=== PATIENT | male | born 1940 | race Hispanic/Latino ===

== ENCOUNTER 2017-09-11 05:14 | Emergency (ER) | payer MEDICARE ==
--- NOTE | 2017-09-11 05:57 | ED PDOC ---
Arrival/HPI - General Chief Complaint: GI Problem Time Seen by Provider: 09/11/17 05:40 Historian: Patient, [facility] - History of Present Illness Narrative History of Present Illness (Text): 09/11/17 05:54 Federico Ortiz is a 77 year old male, whose past medical history includes hypertension, GERD, osteoarthritis, bipolar disorder, and depression, who presents to the Emergency department [facility] complaining of RUQ pain since yesterday. Patient reports associated nausea and multiple episodes of vomiting. Patient denies any fever, chills, chest pain, shortness of breath, diarrhea, urinary symptoms, headache, dizziness, or any other complaints. PMD: Dr. 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 ([facility]) Past Medical History - Provider Review Nursing Documentation Reviewed: Yes - Infectious Disease Hx of Infectious Diseases: None - Cardiac Hx Cardiac Disorders: Yes Hx Congestive Heart Failure: Yes Hx Hypertension: Yes - Pulmonary Hx Respiratory Disorders: No - Neurological Hx Neurological Disorder: No Hx Parkinson's Disease: Yes (? new dx) - HEENT Hx HEENT Disorder: No - Renal Hx Renal Disorder: No - Endocrine/Metabolic Hx Endocrine Disorders: No - Hematological/Oncological Hx Blood Disorders: Yes Hx Blood Transfusions: Yes - Integumentary Hx Dermatological Disorder: Yes Hx Cellulitis: Yes - Musculoskeletal/Rheumatological Hx Musculoskeletal Disorders: Yes Hx Arthritis: Yes - Gastrointestinal Hx Gastrointestinal Disorders: Yes Hx Gastroesophageal Reflux: Yes Hx Vomiting: Yes - Genitourinary/Gynecological Hx Genitourinary Disorders: No Other/Comment: BPH? - Psychiatric Hx Bipolar Disorder: Yes (???) Hx Depression: Yes Hx Schizophrenia: Yes Hx Substance Use: No - Surgical History Hx Open Reduction Internal Fixation: Yes (hip from hip fx 2ndry fall) Other/Comment: LEFT LEG SX - Anesthesia Hx Anesthesia: Yes Hx Anesthesia Reactions: No Hx Malignant Hyperthermia: No - Suicidal Assessment Feels Threatened In Home Enviroment: No Family/Social History - Physician Review Nursing Documentation Reviewed: Yes Family/Social History: Unknown Family HX Smoking Status: Never Smoked Hx Alcohol Use: Yes Hx Substance Use: No Allergies/Home Meds Allergies/Adverse Reactions: Allergies No Known Allergies Allergy (Verified 09/11/17 05:24) Home Medications: Home Meds Medication Instructions Recorded Confirmed Ascorbic Acid [Vitamin C] 500 mg PO DAILY 12/04/13 09/11/17 Escitalopram [Lexapro] 20 mg PO DAILY 12/04/13 09/11/17 Finasteride [Proscar] 5 mg PO DAILY 12/04/13 09/11/17 Furosemide [Lasix] 40 mg PO DAILY 12/04/13 09/11/17 Loratadine [Claritin] 10 mg PO DAILY 12/04/13 09/11/17 Potassium Chloride 20 meq PO DAILY 12/04/13 09/11/17 Tamsulosin [Flomax] 0.4 mg PO DAILY 12/04/13 09/11/17 Ziprasidone Hydrochloride [Geodon] 40 mg PO DAILY 12/04/13 09/11/17 Albuterol/Ipratropium [Duoneb 3 3 ml NEB Q6 PRN 09/11/17 09/11/17 mg/0.5 mg (3 ml) UD] Famotidine [Pepcid] 20 mg PO BID 09/11/17 09/11/17 Furosemide [Lasix] 40 mg PO DAILY 09/11/17 09/11/17 Loratadine [Claritin] 10 mg PO DAILY 09/11/17 09/11/17 Magnesium [Sunmark Magnesium] 250 mg PO HS 09/11/17 09/11/17 Memantine HCl [Namenda Xr] 1 each PO DAILY 09/11/17 09/11/17 Promethazine HCl [Promethegan] 25 mg RC Q8 PRN 09/11/17 09/11/17 Valsartan [Diovan] 80 mg PO DAILY 09/11/17 09/11/17 Review of Systems - Physician Review All systems were reviewed & negative as marked: Yes - Review of Systems Constitutional: Normal. absent: Fevers Eyes: Normal ENT: Normal Respiratory: Normal. absent: SOB, Cough Cardiovascular: Normal. absent: Chest Pain Gastrointestinal: Abdominal Pain, Nausea, Vomiting. absent: Diarrhea Genitourinary Male: Normal. absent: Dysuria, Frequency, Hematuria, Urinary Output Changes Musculoskeletal: Normal. absent: Back Pain, Neck Pain Skin: Normal. absent: Rash Neurological: Normal. absent: Headache, Dizziness Endocrine: Normal Hemo/Lymphatic: Normal Psychiatric: Normal Physical Exam Vital Signs Reviewed: Yes Vital Signs Temp Pulse Resp BP Pulse Ox 09/11/17 05:28 98.0 F 72 16 103/45 L 94 L Temperature: Afebrile Blood Pressure: Normal Pulse: Regular Respiratory Rate: Normal Appearance: Positive for: Well-Appearing, Non-Toxic, Comfortable Pain Distress: None Mental Status: Positive for: Alert and Oriented X 3 - Systems Exam Head: Present: Atraumatic, Normocephalic Pupils: Present: PERRL Extroacular Muscles: Present: EOMI Conjunctiva: Present: Normal Mouth: Present: Moist Mucous Membranes Neck: Present: Normal Range of Motion Respiratory/Chest: Present: Clear to Auscultation, Good Air Exchange. No: Respiratory Distress, Accessory Muscle Use Cardiovascular: Present: Regular Rate and Rhythm, Normal S1, S2. No: Murmurs Abdomen: Present: Tenderness (RUQ tenderness), Normal Bowel Sounds. No: Distention, Peritoneal Signs Back: Present: Normal Inspection Upper Extremity: Present: Normal Inspection. No: Cyanosis, Edema Lower Extremity: Present: Normal Inspection. No: Edema Neurological: Present: GCS=15, CN II-XII Intact, Speech Normal Skin: Present: Warm, Dry, Normal Color. No: Rashes Psychiatric: Present: Alert, Oriented x 3, Normal Insight, Normal Concentration Medical Decision Making ED Course and Treatment: 09/11/17 05:54 Impression: 77 year old male complaining of RUQ pain with associated nausea and vomiting since yesterday. Plan: -- EKG -- Chest X-ray -- US Gallbladder and Pancreas -- Labs, lipase -- IV fluids -- Zofran -- Pepcid -- Reassess and disposition Progress Notes: 09/11/17 06:35 Reviewed EKG, NSR at 72 bpm. 1st degree AV block. Prolonged QT. Non-specific ST/ T wave changes. 09/11/17 07:[address] Horn, pending US, labs, re-assessment, and final disposition. - RAD Interpretation Radiology Orders: 09/11/17 05:57 CHEST PORTABLE [RAD] Stat 09/11/17 06:01 GALLBLADDER & PANCREAS [US] Stat - EKG Interpretation Interpreted by ED Physician: Yes Type: 12 lead EKG - Medication Orders Current Medication Orders: Sodium Chloride (Sodium Chloride 0.9%) 1,000 mls @ 100 mls/hr IV .Q10H LI Last Admin: 09/11/17 06:31 Dose: 100 mls/hr eMAR Start Stop Document 09/11/17 06:31 CNR (Rec: 09/11/17 06:31 CNR [id number]) Intravenous Solution Start Date 09/11/17 Start Time 06:31 Discontinued Medications Famotidine (Pepcid) 20 mg IVP STAT STA Stop: 09/11/17 06:02 Last Admin: 09/11/17 06:31 Dose: 20 mg IVP Administration Document 09/11/17 06:31 CNR (Rec: 09/11/17 06:31 CNR [id number]) Charges for Administration # of IVP Administrations 1 Ondansetron HCl (Zofran Inj) 4 mg IVP ONCE ONE Stop: 09/11/17 06:02 Last Admin: 09/11/17 06:31 Dose: 4 mg IVP Administration Document 09/11/17 06:31 CNR (Rec: 09/11/17 06:31 CNR [id number]) Charges for Administration # of IVP Administrations 1 - Scribe Statement The provider has reviewed the documentation as recorded by the Lenora Steel Provider Scribe Attestation: All medical record entries made by the Scribe were at my direction and personally dictated by me. I have reviewed the chart and agree that the record accurately reflects my personal performance of the history, physical exam, medical decision making, and the department course for this patient. I have also personally directed, reviewed, and agree with the discharge instructions and disposition. Disposition/Present on Arrival - Present on Arrival Any Indicators Present on Arrival: No History of DVT/PE: No History of Uncontrolled Diabetes: No Urinary Catheter: No History of Decub. Ulcer: No History Surgical Site Infection Following: None - Disposition Have Diagnosis and Disposition been Completed?: No Diagnosis: Abdominal pain, Vomiting Disposition Time: 07:00 Patient Problems: Current Active Problems Problem Status Onset Abdominal pain Acute Vomiting Acute Condition: STABLE Referrals: Fernando Stanley DO [Primary Care Provider] - Follow up with primary Forms: Close (Upper Sorbian)
[2017-09-11] MEDS ORDERED: Sodium Chloride 0.9% 1,000 ML IV SCH (06:15)
[2017-09-11 07:11] LABS: ALB/GLOB RATIO 1.1 (1.1-1.8); ALBUMIN 3.5 g/dL (3.0-4.8); ALT/SGPT 50 U/L (7-56); AST/SGOT 54 U/L (17-59); BLOOD UREA NITROGEN 18 mg/dL (7-21); CALCIUM 8.6 mg/dL (8.4-10.5); GFR AFRICAN-AMERICAN > 60; GFR NON-AFRICAN AMERICAN > 60; LIPASE 27 U/L (23-300)
[2017-09-11 07:18] LABS: HEMOGLOBIN 16.4 g/dL (14.0-18.0); RBC 5.4 10^6/uL (3.5-6.1); WHITE BLOOD COUNT 16.7 10^3/ul (4.5-11.0)
[2017-09-11 07:19] LABS: MEAN CELL VOLUME 90.6 fl (80.0-105.0)
--- NOTE | 2017-09-11 07:19 | ED PDOC ---
Physical Exam Vital Signs Temp Pulse Resp BP Pulse Ox 09/11/17 09:00 84 18 124/79 98 09/11/17 07:15 66 18 116/51 L 95 09/11/17 05:28 98.0 F 72 16 103/45 L 94 L Medical Decision Making ED Course and Treatment: 09/11/17 07:00 Case signed out to me by Dr. Nichols. Patient is a 77 year old male, who came to the Emergency department transferred from [facility] complaining of RUQ pain since 1 day. Patient reports also having nausea and multiple episodes of vomiting. Currently pending ultrasound results. 09/11/17 11:30 Reevaluation: On reevaluation the patient feels better and is in no acute distress. I have discussed the results and plan with the patient, who expresses understanding. Patient given the opportunity to ask question, all questions were answered and there is agreement with the plan to discharge the patient to [facility]. Patient is stable for discharge. Patient was instructed to follow up with physician/clinic in 1-2 days or return if symptoms persist/worsen or new concerning symptoms arise. - Lab Interpretations Lab Results: 09/11/17 06:00 09/11/17 06:00 Lab Results 09/11/17 06:00: WBC 16.7 H, RBC 5.40, Hgb 16.4, Hct 48.9, MCV 90.6, MCH 30.4, MCHC 33.5, RDW 15.6 H, Plt Count 190, MPV 11.2 H 09/11/17 06:00: Sodium 140, Potassium 3.8, Chloride 100, Carbon Dioxide 30, Anion Gap 13, BUN 18, Creatinine 1.0, Est GFR ( Amer) > 60, Est GFR (Non- Af Amer) > 60, Random Glucose 157 H, Calcium 8.6, Total Bilirubin 0.5, AST 54, ALT 50, Alkaline Phosphatase 89, Total Protein 6.9, Albumin 3.5, Globulin 3.3, Albumin/Globulin Ratio 1.1, Lipase 27 - RAD Interpretation Radiology Orders: 09/11/17 05:57 CHEST PORTABLE [RAD] Stat 09/11/17 06:01 GALLBLADDER & PANCREAS [US] Stat - Medication Orders Current Medication Orders: Sodium Chloride (Sodium Chloride 0.9%) 1,000 mls @ 100 mls/hr IV .Q10H LI Last Admin: 09/11/17 06:31 Dose: 100 mls/hr eMAR Start Stop Document 09/11/17 06:31 CNR (Rec: 09/11/17 06:31 CNR [id number]) Intravenous Solution Start Date 09/11/17 Start Time 06:31 Discontinued Medications Famotidine (Pepcid) 20 mg IVP STAT STA Stop: 09/11/17 06:02 Last Admin: 09/11/17 06:31 Dose: 20 mg IVP Administration Document 09/11/17 06:31 CNR (Rec: 09/11/17 06:31 CNR [id number]) Charges for Administration # of IVP Administrations 1 Levofloxacin (Levaquin) 750 mg PO STAT STA Stop: 09/11/17 11:26 Ondansetron HCl (Zofran Inj) 4 mg IVP ONCE ONE Stop: 09/11/17 06:02 Last Admin: 09/11/17 06:31 Dose: 4 mg IVP Administration Document 09/11/17 06:31 CNR (Rec: 09/11/17 06:31 CNR [id number]) Charges for Administration # of IVP Administrations 1 - Scribe Statement The provider has reviewed the documentation as recorded by the Lenora Saldivar Provider Scribe Attestation: All medical record entries made by the Scribe were at my direction and personally dictated by me. I have reviewed the chart and agree that the record accurately reflects my personal performance of the history, physical exam, medical decision making, and the department course for this patient. I have also personally directed, reviewed, and agree with the discharge instructions and disposition. Disposition/Present on Arrival - Present on Arrival Any Indicators Present on Arrival: No History of DVT/PE: No History of Uncontrolled Diabetes: No Urinary Catheter: No History of Decub. Ulcer: No History Surgical Site Infection Following: None - Disposition Have Diagnosis and Disposition been Completed?: Yes Diagnosis: Abdominal pain, Vomiting Disposition: HOME/ ROUTINE Disposition Time: 08:30 Condition: STABLE Discharge Instructions (ExitCare): Acute Nausea and Vomiting (ED) Additional Instructions: Thank you for letting us take care of you today. The emergency medical care you received today was directed at your acute symptoms. If you were prescribed any medication, please fill it and take as directed. It may take several days for your symptoms to resolve. Return to the Emergency Department if your symptoms worsen, do not improve, or if you have any other problems. Please contact your doctor or call one of the physicians/clinics you have been referred to that are listed on the Patient Visit Information form that is included in your discharge packet. Bring any paperwork you were given at discharge with you along with any medications you are taking to your follow up visit. Our treatment cannot replace ongoing medical care by a primary care provider (PCP) outside of the emergency department. Thank you for allowing the [facility] team to be part of your care today. Follow up with your doctor in 2-3 days for re-evaluation and further management. Prescriptions: levoFLOXacin [Levaquin] 750 mg PO DAILY #7 tab Referrals: Fernando Stanley DO [Primary Care Provider] - Follow up with primary Forms: [employer] (Tuvaluan)
[2017-09-11 07:20] LABS: MEAN CORPUSCULAR HEMOGLOBIN 30.4 pg (25.0-35.0); MEAN CORPUSCULAR HGB CONC 33.5 g/dl (31.0-37.0); MEAN PLATELET VOLUME 11.2 fl (7.0-11.0); RED CELL DISTRIBUTION WIDTH 15.6 % (11.5-14.5)
[2017-09-11 08:29] VITALS: RESP 18
--- NOTE | 2017-09-11 08:52 | RAD ---
HISTORY: fever COMPARISON: No prior. FINDINGS: LUNGS: No active pulmonary disease. PLEURA: No significant pleural effusion identified, no pneumothorax apparent. CARDIOVASCULAR: Normal. OSSEOUS STRUCTURES: No significant abnormalities. VISUALIZED UPPER ABDOMEN: Normal. OTHER FINDINGS: None. IMPRESSION: No active disease.
[2017-09-11 10:09] VITALS: O2SAT 98
[2017-09-11] MEDS ORDERED: levoFLOXacin 750 MG TAB PO STA (11:25)
--- NOTE | 2017-09-11 11:29 | US ---
HISTORY: right upper abdominal pain/vomiting COMPARISON: None. TECHNIQUE: Sonographic evaluation of the right upper quadrant of the abdomen. FINDINGS: LIVER: Measures 13.8 x 11 cm in length. Increased echogenicity of the liver parenchyma. No mass. No intrahepatic bile duct dilatation. GALLBLADDER: Unremarkable. No gallstones. COMMON BILE DUCT: Measures 3.3 mm. No stones. No dilatation. PANCREAS: Not visualized due to body habitus RIGHT KIDNEY: Measures 9.6 x 5.3 x 5.6 cm in length. Normal echogenicity. No calculus, mass, or hydronephrosis. AORTA: No aneurysmal dilatation. IVC: Not visible OTHER FINDINGS: None . IMPRESSION: No acute findings
[2017-09-11 11:46] VITALS: BP 123/70; PULSE 78; TEMP 98.5
--- NOTE | 2017-09-11 20:47 | CARD ---
APPROVED REPORT EKG Measurement Heart [id number] <Conclusion> Sinus rhythm with 1st degree AV block Prolonged QT Abnormal ECG
== END 2017-09-11 12:43 | disposition home or self-care (01) ==
LOC: ED 05:14
DX: R10.9 Unspecified abdominal pain (principal); R11.10 Vomiting, unspecified; I10 Essential (primary) hypertension; K21.9 Gastro-esophageal reflux disease without esophagitis
CPT/HCPCS: 71045; 76705; 80053; 83690; 85027; 93005; 96374; 96375; 99284; J2405; J7040

== ENCOUNTER 2018-01-25 21:17 | Emergency (ER) | payer MEDICARE ==
[2018-01-25 21:43] VITALS: BMI 47.0
[2018-01-25 22:03] VITALS: RESP 18
--- NOTE | 2018-01-25 22:36 | ED PDOC ---
Arrival/HPI - General Chief Complaint: Weakness/Neurological Deficit Time Seen by Provider: 01/25/18 21:20 Historian: Patient, EMS - History of Present Illness Narrative History of Present Illness (Text): 01/25/18 22:00 77 year old male, whose past medical history includes schizophrenia, Parkinson's , hypertension, GERD, osteoarthritis, bipolar disorder, and depression, presents to the emergency department from [facility] for evaluation. As per EMS, patient has been sleeping all day and had a difficult time waking him up. Patient was not himself and was decided to send him to the ER for further evaluation. Patient denies any current pain at this time. Patient denies any fever, chills, chest pain, shortness of breath, abdominal pain, nausea, vomiting , diarrhea, urinary symptoms, back pain, neck pain, headache, dizziness, or any other complaints. PMD: Dr. 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) Past Medical History - Provider Review Nursing Documentation Reviewed: Yes - Infectious Disease Hx of Infectious Diseases: None - Cardiac Hx [place]: No Hx Hypertension: Yes Hx Peripheral Vascular Disease: Yes - Pulmonary Hx Sleep Apnea: No - Neurological Hx Neurological Disorder: Yes Hx Parkinson's Disease: Yes Hx Seizures: No Hx Transient Ischemic Attacks (TIA): Yes (X2) - HEENT Hx Cataracts: Yes (TIFFANI.) Other/Comment: ALLERGIC RHINITIS - Renal Hx Renal Disorder: No - Endocrine/Metabolic Hx Endocrine Disorders: No - Hematological/Oncological Hx Blood Transfusions: No - Integumentary Hx Dermatological Disorder: Yes Hx Cellulitis: Yes - Musculoskeletal/Rheumatological Hx Musculoskeletal Disorders: Yes Hx Arthritis: Yes Hx Falls: Yes Hx Fractures: No - Gastrointestinal Hx Gastrointestinal Disorders: Yes Hx Gastroesophageal Reflux: Yes - Genitourinary/Gynecological Hx Genitourinary Disorders: No Hx Incontinence: Yes (OCCASSIONALLY) - Psychiatric Hx Psychophysiologic Disorder: Yes Hx Anxiety: Yes Hx Bipolar Disorder: Yes Hx Depression: Yes Hx Emotional Abuse: No Hx Hallucinations: No Hx Panic Disorder: Yes Hx Post Traumatic Stress Disorder: No Hx Psychosis: No Hx Physical Abuse: No Hx Schizophrenia: No Hx Sexual Abuse: No Hx Substance Use: No Other/Comment: OCD - Surgical History Hx Appendectomy: Yes - Anesthesia Hx Anesthesia: Yes Hx Anesthesia Reactions: No Hx Malignant Hyperthermia: No - Suicidal Assessment Feels Threatened In Home Enviroment: No Family/Social History - Physician Review Nursing Documentation Reviewed: Yes Family/Social History: No Known Family HX Smoking Status: Former Smoker Hx Alcohol Use: Yes Hx Substance Use: No Allergies/Home Meds Allergies/Adverse Reactions: Allergies No Known Allergies Allergy (Verified 01/25/18 21:40) Home Medications: Home Meds Medication Instructions Recorded Confirmed Escitalopram [Lexapro] 20 mg PO DAILY 12/04/13 01/25/18 Finasteride [Proscar] 5 mg PO DAILY 12/04/13 01/25/18 Furosemide [Lasix] 40 mg PO DAILY 12/04/13 01/25/18 Tamsulosin [Flomax] 0.4 mg PO DAILY 12/04/13 01/25/18 Albuterol/Ipratropium [Duoneb 3 3 ml NEB Q6 PRN 09/11/17 01/25/18 mg/0.5 mg (3 ml) UD] Famotidine [Pepcid] 20 mg PO BID 09/11/17 01/25/18 Loratadine [Claritin] 10 mg PO DAILY 09/11/17 01/25/18 Magnesium [Sunmark Magnesium] 250 mg PO HS 09/11/17 01/25/18 Memantine HCl [Namenda Xr] 1 each PO DAILY 09/11/17 01/25/18 Promethazine HCl [Promethegan] 25 mg RC Q8 PRN 09/11/17 01/25/18 Valsartan [Diovan] 80 mg PO DAILY 09/11/17 01/25/18 Valsartan 80 mg PO DAILY 09/15/17 01/25/18 Review of Systems - Physician Review All systems were reviewed & negative as marked: Yes - Review of Systems Constitutional: absent: Fevers, Other (Chills) Respiratory: absent: SOB Cardiovascular: absent: Chest Pain Gastrointestinal: absent: Abdominal Pain, Diarrhea, Nausea, Vomiting Genitourinary Male: absent: Dysuria, Frequency, Hematuria Musculoskeletal: absent: Back Pain, Neck Pain Neurological: absent: Headache, Dizziness Physical Exam Vital Signs Reviewed: Yes Vital Signs Temp Pulse Resp BP Pulse Ox 01/26/18 00:29 66 18 182/86 H 96 01/25/18 22:03 98.6 F 69 18 175/87 H 94 L Temperature: Afebrile Blood Pressure: Hypertensive Pulse: Regular Respiratory Rate: Normal Appearance: Positive for: Well-Appearing, Non-Toxic, Comfortable Pain Distress: None Mental Status: Positive for: Alert and Oriented X 3 - Systems Exam Head: Present: Atraumatic, Normocephalic Pupils: Present: PERRL Extroacular Muscles: Present: EOMI Conjunctiva: Present: Normal Mouth: Present: Moist Mucous Membranes Neck: Present: Normal Range of Motion Respiratory/Chest: Present: Clear to Auscultation, Good Air Exchange. No: Respiratory Distress, Accessory Muscle Use Cardiovascular: Present: Regular Rate and Rhythm, Normal S1, S2. No: Murmurs Abdomen: No: Tenderness, Distention, Peritoneal Signs Back: Present: Normal Inspection Upper Extremity: Present: Normal Inspection. No: Cyanosis, Edema Lower Extremity: Present: Normal Inspection, Other (Discoloration of the lower extremities ). No: Edema Neurological: Present: GCS=15, CN II-XII Intact, Speech Normal Skin: Present: Warm, Dry, Normal Color. No: Rashes Psychiatric: Present: Alert, Oriented x 3, Normal Insight, Normal Concentration Medical Decision Making ED Course and Treatment: 01/25/18 22:00 Impression: 77 year old male presents for evaluation. Patient has been sleeping all day and has not been behaving as himself. Plan: -- VBG -- CT Head w/o contrast -- Labs -- Chest X-Ray -- Blood culture, Urine culture -- EKG -- Urinalysis -- Reassess and disposition Progress Notes: EKG: Ordered, reviewed, and independently interpreted the EKG. Rate : 67 BPM Rhythm : Ninus rhythm Interpretation : 1st degree AV block. Case discussed with Dr. Stanley who is aware and request that if work up comes back negative to discharge patient back to the [facility], but if anything is found in the work up to contact him back for further plan. 01/25/18 22:30 CXR Impression: As read by LEANDRO peterson. 01/26/18 01:16 EXAM: CT Head Without Intravenous Contrast Dictated and Authenticated by: Brittanie Garcia MD 01/26/2018 12:51 AM IMPRESSION: - No acute findings seen within the brain. There is no evidence of intracranial hemorrhage or mass effect. - See above for remaining findings. - Lab Interpretations Lab Results: 01/25/18 22:38 01/25/18 22:38 Lab Results 01/25/18 22:38: Sodium 142, Chloride 104, Potassium 4.2, Carbon Dioxide 28, Anion Gap 13, BUN 17, Creatinine 0.8, Est GFR ( Amer) > 60, Est GFR (Non- Af Amer) > 60, Random Glucose 124 H, Calcium 8.7, Total Bilirubin 0.5, AST 27, ALT 31, Alkaline Phosphatase 88, Total Protein 6.5, Albumin 3.3, Globulin 3.2, Albumin/Globulin Ratio 1.1 01/25/18 22:38: pO2 57 H, VBG pH 7.38, VBG pCO2 51.0, VBG HCO3 30.2 H, VBG Total CO2 31.8 H, VBG O2 Sat (Calc) 93.3 H, VBG Base Excess 3.9 H, VBG Potassium 4.7, Sodium 138.0, Chloride 105.0, Glucose 133 H, Lactate 0.9, FiO2 21.0, Venous Blood Potassium 4.7 01/25/18 22:38: PT 13.5 H, INR 1.18 H 01/25/18 22:38: WBC 9.0 D, RBC 5.04, Hgb 15.6, Hct 45.4, MCV 90.1, MCH 31.0, MCHC 34.4, RDW 16.0 H, Plt Count 178, MPV 11.4 H, Gran % 53.8, Lymph % (Auto) 32.4, [place] % (Auto) 10.7 H, Eos % (Auto) 2.9, Baso % (Auto) 0.2, Gran # 4.84, Lymph # (Auto) 2.9, [place] # (Auto) 1.0 H, Eos # (Auto) 0.3, Baso # (Auto) 0.02 I have reviewed the lab results: Yes - RAD Interpretation Radiology Orders: 01/25/18 22:03 HEAD W/O CONTRAST [CT] Stat CXR [CHEST PORTABLE] [RAD] Stat - EKG Interpretation Interpreted by ED Physician: Yes Type: 12 lead EKG - Scribe Statement The provider has reviewed the documentation as recorded by the Lenora Hill Provider Adrienneibe Attestation: All medical record entries made by the Lenroa were at my direction and personally dictated by me. I have reviewed the chart and agree that the record accurately reflects my personal performance of the history, physical exam, medical decision making, and the department course for this patient. I have also personally directed, reviewed, and agree with the discharge instructions and disposition. Disposition/Present on Arrival - Present on Arrival Any Indicators Present on Arrival: No History of DVT/PE: No History of Uncontrolled Diabetes: No Urinary Catheter: No History of Decub. Ulcer: No History Surgical Site Infection Following: None - Disposition Have Diagnosis and Disposition been Completed?: Yes Diagnosis: Hypersomnolence Disposition: HOME/ ROUTINE Disposition Time: :19 Patient Plan: Discharge Condition: GOOD Additional Instructions: Call Dr. Stanley for further orders Referrals: Fernando Stanley, [Primary Care Provider] - Follow up with primary Forms: [employer] (Vietnamese)
[2018-01-25 22:51] LABS: BASO # 0.02 K/mm3 (0.0-2.0); BASO % 0.2 % (0.0-3.0); EOS # 0.3 (0.0-0.7); EOS % 2.9 % (1.5-5.0); GRAN # 4.84 (1.4-6.5); GRAN % 53.8 % (50.0-68.0); HEMOGLOBIN 15.6 g/dL (14.0-18.0); LYMPH # 2.9 (1.2-3.4); LYMPH % 32.4 % (22.0-35.0); MEAN CELL VOLUME 90.1 fl (80.0-105.0); MEAN CORPUSCULAR HGB CONC 34.4 g/dl (31.0-37.0); MEAN PLATELET VOLUME 11.4 fl (7.0-11.0); MONO % 10.7 % (1.0-6.0); RBC 5.04 10^6/uL (3.5-6.1)
[2018-01-25 22:55] LABS: VENOUS BLOOD GAS BASE EXCESS 3.9 mmol/L (0.0-2.0); VENOUS BLOOD GAS PO2 57 mm/Hg (30-55); VENOUS BLOOD PH 7.38 (7.32-7.43)
[2018-01-25 22:58] LABS: INR 1.18 (0.93-1.08); PROTHROMBIN TIME 13.5 SECONDS (9.4-12.5)
[2018-01-25 23:02] LABS: ALB/GLOB RATIO 1.1 (1.1-1.8); ALBUMIN 3.3 g/dL (3.0-4.8); CALCIUM 8.7 mg/dL (8.4-10.5); GFR AFRICAN-AMERICAN > 60; GFR NON-AFRICAN AMERICAN > 60
[2018-01-25 23:03] LABS: ALT/SGPT 31 U/L (7-56); AST/SGOT 27 U/L (17-59); BLOOD UREA NITROGEN 17 mg/dL (7-21)
[2018-01-26 00:30] VITALS: O2SAT 96
--- NOTE | 2018-01-26 00:51 | CT ---
EXAM: CT Head Without Intravenous Contrast EXAM DATE/TIME: 01/25/2018 10:03 PM CLINICAL HISTORY: 77 years old, male; Signs and symptoms; Malaise or fatigue; Additional info: Sleeping all day TECHNIQUE: Axial computed tomography images of the head/brain without intravenous contrast. All CT scans at this facility use one or more dose reduction techniques, viz.: automated exposure control; ma/kV adjustment per patient size (including targeted exams where dose is matched to indication; i.e. head); or iterative reconstruction technique. Coronal and sagittal reformatted images were created and reviewed. COMPARISON: No relevant prior studies available. FINDINGS: BRAIN: Focal area of low density in the right basal ganglia, most compatible with an old/chronic lacunar infarct. Focal area of hypodensity in the right frontal subcortical white matter, most compatible with focal chronic ischemic change. There are also confluent areas of hypodensity in the periventricular white matter bilaterally, most likely representing chronic small vessel ischemic changes. No significant acute abnormality identified. No acute hemorrhage seen within the brain. No acute extra-axial fluid collections visualized. No evidence of significant mass effect within the brain. VENTRICLES: No evidence of significant hydrocephalus. BONES/JOINTS: No acute fractures or other acute bony abnormality noted. SOFT TISSUES: No acute abnormality of the visualized soft tissues is seen. VASCULATURE: Atherosclerotic calcification. SINUSES: Visualized paranasal sinuses appear clear. MASTOID AIR CELLS: Mastoid air cells appear clear. IMPRESSION: - No acute findings seen within the brain. There is no evidence of intracranial hemorrhage or mass effect. - See above for remaining findings.
[2018-01-26 02:18] VITALS: BP 174/80; PULSE 62; TEMP 98.8
--- NOTE | 2018-01-26 08:31 | RAD ---
HISTORY: sleeping all day COMPARISON: 09/11/2017 FINDINGS: LUNGS: No active pulmonary disease. PLEURA: No significant pleural effusion identified, no pneumothorax apparent. CARDIOVASCULAR: Normal. OSSEOUS STRUCTURES: No significant abnormalities. VISUALIZED UPPER ABDOMEN: Normal. OTHER FINDINGS: None. IMPRESSION: No active disease.
--- NOTE | 2018-01-26 23:46 | CARD ---
APPROVED REPORT EKG Measurement Heart [id number] CT 262P [id number] <Conclusion> Sinus rhythm with 1st degree AV block Otherwise normal ECG
== END 2018-01-26 02:36 | disposition home or self-care (01) ==
LOC: ED 21:17
DX: G47.10 Hypersomnia, unspecified (principal); I10 Essential (primary) hypertension; G20 Parkinson's disease; Z87.891 Personal history of nicotine dependence

== ENCOUNTER 2018-08-17 07:02 | Inpatient (IN) | payer MEDICARE ==
--- NOTE | 2018-08-17 07:42 | ED PDOC ---
Arrival/HPI - General Chief Complaint: Altered Mental Status Historian: Patient - History of Present Illness Narrative History of Present Illness (Text): 78 yr old M w/ hx of parkinsons, bipolar, schizophrenia, CHF, p/w lethargy, tiredness per pt and [facility] salvador RN. FRAN from CT from lethargy, pinpoint pupils, given narcan in the field with mild effect per EMS. On evaluation pt notes feeling tired, but denies any chest pain or shortness of b reath. He denies any headache, abdominal pain, nausea, vomiting, constipation, diarrhea, or any other complaints. No fever, chills or night sweats. No SI or HI or depression. Spoke to RN at [phone] was noticed to be more tired today, unk last time seen normal per RN. No unilateral weakness or slurred speech. No other complaints from pt other than feeling tired. No recent procedures. No other complaints. Time/Duration: Prior to Arrival Symptom Onset: Sudden Symptom Course: Unchanged Activities at Onset: Light Past Medical History - Provider Review Nursing Documentation Reviewed: Yes - Infectious Disease Hx of Infectious Diseases: None - Cardiac Hx NC: No Hx Hypertension: Yes Hx Peripheral Vascular Disease: Yes - Pulmonary Hx Sleep Apnea: No - Neurological Hx Neurological Disorder: Yes Hx Parkinson's Disease: Yes Hx Seizures: No Hx Transient Ischemic Attacks (TIA): Yes (X2) - HEENT Hx Cataracts: Yes (TIFFANI.) Other/Comment: ALLERGIC RHINITIS - Renal Hx Renal Disorder: No - Endocrine/Metabolic Hx Endocrine Disorders: No - Hematological/Oncological Hx Blood Transfusions: No - Integumentary Hx Dermatological Disorder: Yes Hx Cellulitis: Yes - Musculoskeletal/Rheumatological Hx Musculoskeletal Disorders: Yes Hx Arthritis: Yes Hx Falls: Yes Hx Fractures: No - Gastrointestinal Hx Gastrointestinal Disorders: Yes Hx Gastroesophageal Reflux: Yes - Genitourinary/Gynecological Hx Genitourinary Disorders: No Hx Incontinence: Yes (OCCASSIONALLY) - Psychiatric Hx Psychophysiologic Disorder: Yes Hx Anxiety: Yes Hx Bipolar Disorder: Yes Hx Depression: Yes Hx Emotional Abuse: No Hx Hallucinations: No Hx Panic Disorder: Yes Hx Post Traumatic Stress Disorder: No Hx Psychosis: No Hx Physical Abuse: No Hx Schizophrenia: No Hx Sexual Abuse: No Hx Substance Use: No Other/Comment: OCD - Surgical History Hx Appendectomy: Yes - Anesthesia Hx Anesthesia: Yes Hx Anesthesia Reactions: No Hx Malignant Hyperthermia: No - Suicidal Assessment Feels Threatened In Home Enviroment: No Family/Social History - Physician Review Nursing Documentation Reviewed: Yes Family/Social History: Unknown Family HX Smoking Status: Former Smoker Hx Alcohol Use: Yes Hx Substance Use: No Allergies/Home Meds Allergies/Adverse Reactions: Allergies No Known Allergies Allergy (Verified 01/25/18 21:40) Home Medications: Home Meds Medication Instructions Recorded Confirmed Escitalopram [Lexapro] 20 mg PO DAILY 12/04/13 01/25/18 Finasteride [Proscar] 5 mg PO DAILY 12/04/13 01/25/18 Furosemide [Lasix] 40 mg PO DAILY 12/04/13 01/25/18 Tamsulosin [Flomax] 0.4 mg PO DAILY 12/04/13 01/25/18 Albuterol/Ipratropium [Duoneb 3 3 ml NEB Q6 PRN 09/11/17 01/25/18 mg/0.5 mg (3 ml) UD] Famotidine [Pepcid] 20 mg PO BID 09/11/17 01/25/18 Loratadine [Claritin] 10 mg PO DAILY 09/11/17 01/25/18 Magnesium [Sunmark Magnesium] 250 mg PO HS 09/11/17 01/25/18 Memantine HCl [Namenda Xr] 1 each PO DAILY 09/11/17 01/25/18 Promethazine HCl [Promethegan] 25 mg RC Q8 PRN 09/11/17 01/25/18 Valsartan [Diovan] 80 mg PO DAILY 09/11/17 01/25/18 Valsartan 80 mg PO DAILY 09/15/17 01/25/18 Review of Systems - Physician Review All systems were reviewed & negative as marked: Yes - Review of Systems Constitutional: Fatigue Eyes: Normal. absent: Vision Changes ENT: Normal. absent: Hearing Changes Respiratory: Normal. absent: SOB, Cough Cardiovascular: Normal. absent: Chest Pain, Palpitations Gastrointestinal: Normal. absent: Abdominal Pain, Stool Changes, Constipation, Diarrhea, Vomiting, Appetite Changes, Hematochezia, Anorexia Genitourinary Male: Normal. absent: Dysuria, Frequency, Hematuria Musculoskeletal: absent: Arthralgias, Back Pain, Neck Pain, Joint Swelling Skin: absent: Rash, Pruritis Neurological: absent: Headache, Dizziness, Focal Weakness Endocrine: absent: Diaphoresis, Polyuria Hemo/Lymphatic: absent: Easy Bleeding Psychiatric: absent: Anxiety, Depression, Suicidal Ideation Physical Exam Vital Signs Reviewed: Yes Temperature: Afebrile Blood Pressure: Normal Pulse: Bradycardic Respiratory Rate: Normal Appearance: Positive for: Well-Appearing, Non-Toxic, Comfortable Pain Distress: None Mental Status: Positive for: Alert and Oriented X 3 Finger Stick Blood Glucose: 83 - Systems Exam Head: Present: Atraumatic, Normocephalic Pupils: Present: PERRL. No: Sluggish Extroacular Muscles: Present: EOMI. No: Gaze Palsy Conjunctiva: Present: Normal. No: Injected Ears: Present: Normal Mouth: Present: Moist Mucous Membranes Pharnyx: Present: Normal. No: ERYTHEMA, EXUDATE, TONSILS ENLARGED Nose (External): Present: Atraumatic. No: Abrasion Nose (Internal): Present: Normal Inspection Neck: Present: Normal Range of Motion. No: Meningeal Signs, MIDLINE TENDERNESS, Paraspinal Tenderness, JVD Respiratory/Chest: Present: Good Air Exchange, Wheezes (mild wheezes at bases) Cardiovascular: Present: Regular Rate and Rhythm, Normal S1, S2. No: Murmurs Abdomen: Present: Normal Bowel Sounds. No: Tenderness, Distention, Peritoneal Signs Back: Present: Normal Inspection. No: CVA Tenderness Upper Extremity: Present: Normal Inspection, Normal ROM, NORMAL PULSES. No: Cyanosis, Edema Lower Extremity: Present: Edema (1+), NORMAL PULSES. No: CALF TENDERNESS Neurological: Present: GCS=15, CN II-XII Intact, Speech Normal, Motor Func Grossly Intact, Normal Sensory Function, Normal Cerebellar Funct Skin: Present: Warm, Dry, Other (chronic venous stasis changes b/l le). No: Rashes Psychiatric: Present: Alert, Oriented x 3, Normal Insight Medical Decision Making ED Course and Treatment: 78 yr old male w/ hx of parkinsons, depression, CHF p/w lethargy and tiredness. On exam AOx3, well appearing, in NAD. Non-ttp. No meningeal signs. Well appearing, scattered wheezes on exam. Normal neuro exam. Unk last seem normal. Pt in diapers. ?UTI vs PNA. Will seek labs, imaging. 0807 pt in NAD. 08/17/18 10:12 labs largely unremarkble mild wheezes on exam Negative CT chest and CXR Pending Urine, re-eval pt in NAD Dr. Stanley aware. 08/17/18 10:50 UTI rocephin ordered pt in [facility] abx ordered, UC ordered Accepted By Dr. stanley to his service: req Dr. Hodges as ID consult. - RAD Interpretation Narrative RAD Interpretations (Text): CT of head reviewed by radiologist, shows: Dictator : Dung Torres MD Report Date : 08/17/2018 10:04:40 IMPRESSION: No acute hemorrhage. X-Ray of chest, 2 views (PA/LAT) Dictator : Matthew Vasquez MD Report Date : 08/17/2018 09:22:16 IMPRESSION: No active disease. Radiology Orders: 08/17/18 07:16 HEAD W/O CONTRAST [CT] Stat CHEST TWO VIEWS (PA/LAT) [RAD] Stat Visual Presentation Manager: Radiologist - EKG Interpretation EKG Interpretation (Text): 08/17/18 EKG: Ordered, reviewed, and independently interpreted the EKG. Rate : 48 BPM Rhythm : Sinus bradycardia Interpretation : No STEMI Interpreted by ED Physician: Yes Type: 12 lead EKG - Scribe Statement The provider has reviewed the documentation as recorded by the Scribe Michelle Stoner All medical record entries made by the Scribe were at my direction and personally dictated by me. I have reviewed the chart and agree that the record accurately reflects my personal performance of the history, physical exam, medical decision making, and the department course for this patient. I have also personally directed, reviewed, and agree with the discharge instructions and disposition. Disposition/Present on Arrival - Present on Arrival Any Indicators Present on Arrival: No History of DVT/PE: No History of Uncontrolled Diabetes: No Urinary Catheter: No History of Decub. Ulcer: No History Surgical Site Infection Following: None - Disposition Have Diagnosis and Disposition been Completed?: Yes Diagnosis: UTI (urinary tract infection) Disposition Time: 10:55 Condition: GOOD Forms: [facility] (Uzbek)
[2018-08-17 07:45] LABS: VENOUS BLOOD GAS BASE EXCESS 5.5 mmol/L (0.0-2.0); VENOUS BLOOD GAS PO2 65 mm/Hg (30-55); VENOUS BLOOD PH 7.37 (7.32-7.43)
[2018-08-17 07:47] LABS: BASO # 0.02 K/mm3 (0.0-2.0); BASO % 0.2 % (0.0-3.0); EOS # 0.3 (0.0-0.7); EOS % 3.4 % (1.5-5.0); GRAN # 4.55 (1.4-6.5); HEMOGLOBIN 14.6 g/dL (14.0-18.0); LYMPH # 3.1 (1.2-3.4); LYMPH % 35.9 % (22.0-35.0); MEAN CELL VOLUME 93.5 fl (80.0-105.0); MEAN CORPUSCULAR HEMOGLOBIN 30.8 pg (25.0-35.0); MEAN PLATELET VOLUME 10.6 fl (7.0-11.0); MONO # 0.6 (0.1-0.6); MONO % 7.5 % (1.0-6.0); RBC 4.74 10^6/uL (3.5-6.1); RED CELL DISTRIBUTION WIDTH 14.4 % (11.5-14.5); WHITE BLOOD COUNT 8.6 10^3/uL (4.5-11.0)
[2018-08-17 07:54] LABS: ALB/GLOB RATIO 0.9 (1.1-1.8); ALBUMIN 3.1 g/dL (3.0-4.8); ALT/SGPT 27 U/L (7-56); AST/SGOT 20 U/L (17-59); BLOOD UREA NITROGEN 23 mg/dL (7-21); CALCIUM 8.6 mg/dL (8.4-10.5); GFR NON-AFRICAN AMERICAN > 60; LIPASE 40 U/L (23-300)
[2018-08-17 08:05] LABS: B-TYPE NATRIURETIC PEPTIDE 515 pg/mL (0-450); TROPONIN I 0.02 ng/mL
[2018-08-17] MEDS ORDERED: Albuterol-Ipratrop 3 mg / 0.5 (3 ml) UD IH STA (08:07)
[2018-08-17 09:17] LABS: VENOUS BLOOD GAS BASE EXCESS 5.1 mmol/L (0.0-2.0); VENOUS BLOOD GAS PO2 97 mm/Hg (30-55); VENOUS BLOOD PH 7.36 (7.32-7.43)
--- NOTE | 2018-08-17 09:23 | CARD ---
APPROVED REPORT Date of service: 08/17/2018 EKG Measurement Heart [id number] NH 234P [id number] <Conclusion> Marked sinus bradycardia with 1st degree AV block NSSTW changes No change except the rate is slower
--- NOTE | 2018-08-17 09:26 | RAD ---
Date of service: 08/17/2018 HISTORY: sob COMPARISON: 01/25/2018 FINDINGS: LUNGS: No active pulmonary disease. PLEURA: No significant pleural effusion identified, no pneumothorax apparent. CARDIOVASCULAR: Aortic calcification Normal cardiac size. No pulmonary vascular congestion. OSSEOUS STRUCTURES: No significant abnormalities. VISUALIZED UPPER ABDOMEN: Normal. OTHER FINDINGS: None. IMPRESSION: No active disease.
[2018-08-17 10:05] LABS: URINE BILIRUBIN NEGATIVE (NEGATIVE); URINE BLOOD TRACE-INTACT (NEGATIVE); URINE GLUCOSE (UA) NEGATIVE (NEGATIVE); URINE LEUKOCYTE ESTERASE MODERATE Leu/uL (NEGATIVE); URINE PROTEIN NEGATIVE mg/dL (<30 mg/dL); URINE UROBILINOGEN 0.2 E.U./dL (<1 E.U./dL)
--- NOTE | 2018-08-17 10:08 | CT ---
Date of service: 08/17/2018 PROCEDURE: CT HEAD WITHOUT CONTRAST. HISTORY: lethargic COMPARISON: 01/26/2018 TECHNIQUE: Axial computed tomography images were obtained through the head/brain without intravenous contrast. Radiation dose: Total exam DLP = 973.56 mGy-cm. This CT exam was performed using one or more of the following dose reduction techniques: Automated exposure control, adjustment of the mA and/or kV according to patient size, and/or use of iterative reconstruction technique. FINDINGS: HEMORRHAGE: No intracranial hemorrhage. BRAIN: No mass effect or edema. Atrophy and chronic microvascular ischemic disease. VENTRICLES: Unremarkable. No hydrocephalus. CALVARIUM: Unremarkable. PARANASAL SINUSES: Unremarkable as visualized. No significant inflammatory changes. MASTOID AIR CELLS: Unremarkable as visualized. No inflammatory changes. OTHER FINDINGS: None. IMPRESSION: No acute hemorrhage.
[2018-08-17 10:18] LABS: URINE APPEARANCE CLOUDY (CLEAR); URINE COLOR YELLOW (YELLOW)
[2018-08-17 10:19] LABS: URINE AMORPHOUS SEDIMENT SMALL /hpf; URINE BACTERIA MANY /hpf; URINE WBC TNTC /hpf (0-6)
[2018-08-17] MEDS ORDERED: cefTRIAXone 1 gm 1 GM/100 ML BAG IVPB ONE (10:41)
--- NOTE | 2018-08-17 14:22 | CP.PCM.CON ---
History of Present Illness - History of Present Illness History of Present Illness: 78 year old male with PMH of Parkinson's disease, bipolar disorder, chronic CHF, obesity came in to [facility] from the correction because of lethargy. The patient was apparently well up to yesterday and was eating well. There was no note of fevers, no vomiting, no loss of consciousness, no diarrhea. The patient is currently awake, alert, eating well, denies headache, has some cough, no nausea, no abdominal pain, but has some urinary frequency. Urinalysis done in the ED is showing pyuria. Infectious diseases consult is requested to further evaluate and manage. Review of Systems - Review of Systems All systems: reviewed and no additional remarkable complaints except (as per HPI) Past Patient History - Infectious Disease Hx of Infectious Diseases: None - Past Medical History & Family History Past Medical History?: Yes - Past Social History Smoking Status: Former Smoker - CARDIAC Hx Heart Attack: No Hx Hypertension: Yes Hx Peripheral Vascular Disease: Yes - PULMONARY Hx Sleep Apnea: No - NEUROLOGICAL Hx Neurological Disorder: Yes Hx Parkinson's Disease: Yes Hx Seizures: No Hx Transient Ischemic Attacks (TIA): Yes (X2) - HEENT Hx Cataracts: Yes (TIFFANI.) Other/Comment: ALLERGIC RHINITIS - RENAL Hx Chronic Kidney Disease: No - ENDOCRINE/METABOLIC Hx Endocrine Disorders: No - HEMATOLOGICAL/ONCOLOGICAL Hx Blood Transfusions: No - INTEGUMENTARY Hx Dermatological Problems: Yes Hx Cellulitis: Yes - MUSCULOSKELETAL/RHEUMATOLOGICAL Hx Musculoskeletal Disorders: Yes Hx Arthritis: Yes Hx Falls: Yes Hx Fractures: No - GASTROINTESTINAL Hx Gastrointestinal Disorders: Yes Hx Gastroesophageal Reflux: Yes - GENITOURINARY/GYNECOLOGICAL Hx Genitourinary Disorders: No Hx Incontinence: Yes (OCCASSIONALLY) - PSYCHIATRIC Hx Psychophysiologic Disorder: Yes Hx Anxiety: Yes Hx Bipolar Disorder: Yes Hx Depression: Yes Hx Emotional Abuse: No Hx Hallucinations: No Hx Panic Symptoms: Yes Hx Post Traumatic Stress Disorder: No Hx Psychosis: No Hx Physical Abuse: No Hx Schizophrenia: No Hx Sexual Abuse: No Hx Substance Use: No Other/Comment: OCD - SURGICAL HISTORY Hx Appendectomy: Yes - ANESTHESIA Hx Anesthesia: Yes Hx Anesthesia Reactions: No Hx Malignant Hyperthermia: No Meds Allergies/Adverse Reactions: Allergies Allergy/AdvReac Type Severity Reaction Status Date / Time No Known Allergies Allergy Verified 01/25/18 21:40 Physical Exam - Constitutional Appears: Non-toxic, No Acute Distress, Chronically Ill - Head Exam Head Exam: NORMAL INSPECTION - Neck Exam Neck exam: Negative for: Meningismus - Respiratory Exam Respiratory Exam: Decreased Breath Sounds - Cardiovascular Exam Cardiovascular Exam: +S1, +S2 - GI/Abdominal Exam GI & Abdominal Exam: Soft. absent: Tenderness Results - Vital Signs Recent Vital Signs: Last Vital Signs Temp 97.7 F 08/17/18 11:27 Pulse 50 L 08/17/18 11:27 Resp 19 08/17/18 11:27 BP 158/65 H 08/17/18 11:27 Pulse Ox 97 08/17/18 11:27 - Labs Result Diagrams: 08/17/18 07:31 08/17/18 07:31 Labs: Laboratory Results - last 24 hr 08/17/18 08/17/18 08/17/18 07:15 07:31 07:31 WBC 8.6 RBC 4.74 Hgb 14.6 Hct 44.3 MCV 93.5 D MCH 30.8 MCHC 33.0 RDW 14.4 Plt Count 160 MPV 10.6 Gran % 53.0 Lymph % (Auto) 35.9 H Bryan % (Auto) 7.5 H Eos % (Auto) 3.4 Baso % (Auto) 0.2 Gran # 4.55 Lymph # (Auto) 3.1 Bryan # (Auto) 0.6 Eos # (Auto) 0.3 Baso # (Auto) 0.02 pO2 65 H VBG pH 7.37 VBG pCO2 56.0 VBG HCO3 32.4 H VBG Total CO2 VBG O2 Sat (Calc) 94.5 H VBG Base Excess 5.5 H VBG Potassium Glucose Lactate FiO2 Sodium Potassium Chloride Carbon Dioxide Anion Gap BUN Creatinine Est GFR ( Amer) Est GFR (Non-Af Amer) POC Glucose (mg/dL) 83 Random Glucose Calcium Magnesium Total Bilirubin AST ALT Alkaline Phosphatase Troponin I NT-Pro-B Natriuret Pep Total Protein Albumin Globulin Albumin/Globulin Ratio Lipase Venous Blood Potassium Urine Color Urine Appearance Urine pH Ur Specific [place] Urine Protein Urine Glucose (UA) Urine Ketones Urine Blood Urine Nitrate Urine Bilirubin Urine Urobilinogen Ur Leukocyte Esterase Urine RBC Urine WBC Ur Epithelial Cells Amorphous Sediment Urine Bacteria Blood Type Antibody Screen BBK History Checked 08/17/18 08/17/18 08/17/18 07:31 09:05 09:05 WBC RBC Hgb Hct MCV MCH MCHC RDW Plt Count MPV Gran % Lymph % (Auto) Bryan % (Auto) Eos % (Auto) Baso % (Auto) Gran # Lymph # (Auto) Bryan # (Auto) Eos # (Auto) Baso # (Auto) pO2 97 H VBG pH 7.36 VBG pCO2 57.0 VBG HCO3 32.2 H VBG Total CO2 33.9 H VBG O2 Sat (Calc) 98.1 H VBG Base Excess 5.1 H VBG Potassium 4.0 Glucose 113 H Lactate 1.2 FiO2 21.0 Sodium 141 139.0 Potassium 4.2 Chloride 104 105.0 Carbon Dioxide 33 Anion Gap 8 L BUN 23 H Creatinine 0.7 L Est GFR ( Amer) > 60 Est GFR (Non-Af Amer) > 60 POC Glucose (mg/dL) Random Glucose 113 H Calcium 8.6 Magnesium 2.2 Total Bilirubin 0.4 AST 20 ALT 27 Alkaline Phosphatase 87 Troponin I 0.02 NT-Pro-B Natriuret Pep 515 H Total Protein 6.4 Albumin 3.1 Globulin 3.3 Albumin/Globulin Ratio 0.9 L Lipase 40 Venous Blood Potassium 4.0 Urine Color Urine Appearance Urine pH Ur Specific [place] Urine Protein Urine Glucose (UA) Urine Ketones Urine Blood Urine Nitrate Urine Bilirubin Urine Urobilinogen Ur Leukocyte Esterase Urine RBC Urine WBC Ur Epithelial Cells Amorphous Sediment Urine Bacteria Blood Type O POSITIVE Antibody Screen Negative BBK History Checked Patient has bt 08/17/18 09:57 WBC RBC Hgb Hct MCV MCH MCHC RDW Plt Count MPV Gran % Lymph % (Auto) Bryan % (Auto) Eos % (Auto) Baso % (Auto) Gran # Lymph # (Auto) Bryan # (Auto) Eos # (Auto) Baso # (Auto) pO2 VBG pH VBG pCO2 VBG HCO3 VBG Total CO2 VBG O2 Sat (Calc) VBG Base Excess VBG Potassium Glucose Lactate FiO2 Sodium Potassium Chloride Carbon Dioxide Anion Gap BUN Creatinine Est GFR ( Amer) Est GFR (Non-Af Amer) POC Glucose (mg/dL) Random Glucose Calcium Magnesium Total Bilirubin AST ALT Alkaline Phosphatase Troponin I NT-Pro-B Natriuret Pep Total Protein Albumin Globulin Albumin/Globulin Ratio Lipase Venous Blood Potassium Urine Color Yellow Urine Appearance Cloudy Urine pH 7.0 Ur Specific [place] 1.020 Urine Protein Negative Urine Glucose (UA) Negative Urine Ketones Negative Urine Blood Trace-intact H Urine Nitrate Positive H Urine Bilirubin Negative Urine Urobilinogen 0.2 Ur Leukocyte Esterase Moderate H Urine RBC 2 - 5 H Urine WBC Tntc H Ur Epithelial Cells 6 - 8 H Amorphous Sediment Small Urine Bacteria Many Blood Type Antibody Screen BBK History Checked Assessment & Plan - Assessment and Plan (Free Text) Plan: Assessment Consider urinary tract infection, R/O prostate disease Parkinson's disease bipolar disorder chronic CHF obesity Plan Started Cefepime pending blood and urine cx reviewed CXR which does not show infiltrates will monitor clinically
[2018-08-17 15:21] VITALS: BMI 73.1
[2018-08-17] MEDS ORDERED: Influenza Vaccine 60 mcg/0.5 mL SYR (4YR UP) IM ONE (15:23)
[2018-08-17] MEDS ORDERED: Pneumococcal 23-Valent Vaccine IM ONE (15:23)
[2018-08-17] MEDS: Sodium Chloride 0.45% 1,000 ML IV SCH (17:34)
[2018-08-17] MEDS: Cefepime 1gm in NS 100ml 1 GM/100 ML BAG IVPB SCH ×2 (17:34→23:31)
[2018-08-17] MEDS ORDERED: Furosemide 40 mg/5 mL Oral Soln UD PO ONE (18:18)
[2018-08-17] MEDS ORDERED: Albuterol-Ipratrop 3 mg / 0.5 (3 ml) UD INH PRN (20:00)
--- NOTE | 2018-08-17 23:43 | HP ---
DATE OF EXAM: 08/17/2018 HISTORY OF PRESENT ILLNESS: I saw him in the emergency room at [facility]. I was called down to see him as he was not feeling well. He has been tired, lethargic. He came in from [facility], pinpoint pupils, was given Narcan in the field, mild effect, just not himself. PAST MEDICAL HISTORY: He has a past medical history of being a 78-year-old white man, well known for years, with Parkinson's, bipolar, schizophrenia, CHF. Now, he is very lethargic. History of depression, bipolar, hypertension, Parkinson's, TIA x2, bilateral cataracts, allergic rhinitis, cellulitis history. He is morbidly obese. He has had multiple falls. He has arthritis, gastroesophageal reflux disease, incontinence, anxiety, depression, bipolar, panic disorder, OCD. He has had appendectomy in his lifetime. FAMILY HISTORY: Unknown family history. SOCIAL HISTORY: Former smoker, still drinks alcohol. No substance abuse. ALLERGIES: NO KNOWN DRUG ALLERGIES. MEDICATIONS: He takes Lexapro, Proscar, Lasix, Flomax, DuoNeb, Pepcid, Claritin, magnesium, Namenda, Promethegan, Diovan and valsartan. REVIEW OF SYSTEMS: He is very tired. No acute vision or hearing changes. No shortness of breath or cough. No chest pain or palpitations. No abdominal pain, stool changes, constipation, or diarrhea, although he does take Imodium a lot for diarrhea. He does have incontinence of the urine, but none now. No problems urinating. He does have back pain from time to time. No arthralgias. His skin for the most part is intact. No headache or dizziness. No focal weakness. He is not sweating. He is not easily bleeding. He is anxious a little bit, not depressed, no suicidal thoughts. PHYSICAL EXAMINATION: VITAL SIGNS: He has a 97.9 temp, 50 pulse, 158/65 blood pressure, he has 19 respiratory rate, 97% O2 sat. HEENT: His head is atraumatic, normocephalic. Extraocular muscles are intact. Pupils equal, react to light and accommodation. Throat is moist. NECK: Supple. Fair range of motion of the neck. No JVD. HEART: Regular rate. Normal S1, S2. LUNGS: Decreased breath sounds, occasional wheezes. ABDOMEN: Morbidly obese, soft, nontender. Positive bowel sounds. No guarding, no rebound, no CVA tenderness. EXTREMITIES: He has +2/4 pitting edema in bilateral lower extremities in the ankles. NEUROLOGIC: GCS is 15. Cranial nerves II through XII grossly intact. Normal speech, lethargic. Alert and oriented x3. SKIN: Warm and dry. Chronic venous stasis changes in bilateral lower extremities. LABORATORY DATA: He had multiple tests done. He had a urine with trace blood, positive nitrite, moderate leukocytes, too numerous to count white cells, many bacteria. He has a 141 sodium, potassium 4.2, BUN 23, creatinine 0.7, GFR is greater than 60, sugar is 113, calcium 8.6, magnesium 2.2. Total bili is 0.4, AST is 20, ALT is 27, alk phos 87. BNP is 515. Troponin I is 0.02. Total protein 6.4, albumin 2.1, globulin 3.3, lipase is 40, lactate is 1.2. White count 8.6, hemoglobin 14.6, hematocrit 44.3, platelets of 160. Chest x-ray was clear. Head CT was clear. He has a consult with Infectious Disease. He will be on IV fluids and his regular medications. Infectious Disease put him on Maxipime 1 g IV every 12 hours. He will have labs tomorrow morning. He is here for UTI, lethargy, history of bipolar, Parkinson's, and CHF. Fernando Stanley DO MTDD
[2018-08-18] MEDS: MAGNESIUM 250 MG PO SCH ×2 (02:00→22:01)
[2018-08-18 06:53] LABS: HEMOGLOBIN 14.9 g/dL (14.0-18.0); MEAN CELL VOLUME 92.2 fl (80.0-105.0); MEAN CORPUSCULAR HEMOGLOBIN 30.7 pg (25.0-35.0); MEAN CORPUSCULAR HGB CONC 33.3 g/dl (31.0-37.0); MEAN PLATELET VOLUME 10.7 fl (7.0-11.0); RBC 4.86 10^6/uL (3.5-6.1); RED CELL DISTRIBUTION WIDTH 14.5 % (11.5-14.5); WHITE BLOOD COUNT 11.2 10^3/uL (4.5-11.0)
[2018-08-18] MEDS: Metoprolol Succinate 50 mg XL Tab PO SCH ×2 (07:01→09:24)
[2018-08-18 07:30] LABS: ALB/GLOB RATIO 0.9 (1.1-1.8); ALBUMIN 3.3 g/dL (3.0-4.8); ALT/SGPT 26 U/L (7-56); AST/SGOT 23 U/L (17-59); BLOOD UREA NITROGEN 21 mg/dL (7-21); CALCIUM 8.4 mg/dL (8.4-10.5); GFR NON-AFRICAN AMERICAN > 60
[2018-08-18] MEDS: Cefepime 1gm in NS 100ml 1 GM/100 ML BAG IVPB SCH ×2 (09:57→21:08)
[2018-08-18] MEDS: Potassium Chloride 20 mEq ER Tab PO SCH (09:58)
[2018-08-18] MEDS: Pantoprazole 40 mg EC Tab PO SCH (09:58)
--- NOTE | 2018-08-18 10:01 | RAD ---
Date of service: 08/18/2018 HISTORY: rule out pneumonia COMPARISON: 08/17/2018 FINDINGS: LUNGS: No active pulmonary disease. PLEURA: No significant pleural effusion identified, no pneumothorax apparent. CARDIOVASCULAR: Aortic calcification Normal cardiac size. No pulmonary vascular congestion. OSSEOUS STRUCTURES: No significant abnormalities. VISUALIZED UPPER ABDOMEN: Normal. OTHER FINDINGS: None. IMPRESSION: No active disease.
--- NOTE | 2018-08-18 10:44 | PN ---
DATE: 08/18/2018 SUBJECTIVE: I saw Federico Ortiz resting comfortably in bed. He did not have his breakfast. He is alert, pretty comfortable today. He is on IV fluids, Claritin, DuoNebs, Flomax, Geodon, potassium, Klonopin, Lasix, Lexapro, magnesium, cefepime, Mobic, Proscar, Protonix, vitamins, Zestril and he is comfortable. PHYSICAL EXAMINATION: VITAL SIGNS: Temperature 98.3, 66 pulse, 186/91 blood pressure, blood pressure is quite high. I had to adjust his blood pressure medications, 19 respiratory rate, 99% O2 sat on room air. HEENT: Head is atraumatic, normocephalic. HEART: Regular rate. LUNGS: Decreased breath sounds but clear. ABDOMEN: Soft, morbidly obese. EXTREMITIES: Trace edema. LABORATORY DATA: He has 11.2 white count, 14.9 hemoglobin, 44.8 hematocrit, 176 platelets. He has 139 sodium, potassium 3.8, BUN 21, creatinine 0.7. GFR greater than 60, sugar is 107, calcium 8.4, total bili is 0.6, AST is 23, ALT is 26, alk phos 97, total protein 6.9. His urine was very positive. PLAN: He is on IV antibiotics with the chest x-ray pending. I had to adjust his blood pressure medications. He has UTI, history of bipolar, CHF, Parkinson's, and COPD. Fernando Stanley DO
--- NOTE | 2018-08-18 11:39 | CP.PCM.PCO ---
Physician Communication Note - Physician Communication Note Physician Communication Note: urine culture/sensitivies pending continue abx as per ID
[2018-08-18 12:08] LABS: FREE T4 1.63 ng/dL (0.78-2.19)
--- NOTE | 2018-08-18 14:52 | CP.PCM.PN ---
Subjective - Date & Time of Evaluation Date of Evaluation: 08/18/18 Time of Evaluation: 11:10 - Subjective Subjective: Comfortable in bed, less cough, no fevers. Objective - Vital Signs/Intake and Output Vital Signs (last 24 hours): Temp Pulse Resp BP Pulse Ox 97.9 F 50 L 19 158/65 H 97 08/17/18 12:20 08/17/18 12:20 08/17/18 12:20 08/17/18 11:27 08/17/18 12:20 - Medications Medications: Current Medications Cefepime HCl (Maxipime 1gm) 1 gm in 100 mls @ 100 mls/hr IVPB Q12 LI; Protocol - Labs Labs: 08/17/18 07:31 08/17/18 07:31 - Constitutional Appears: Chronically Ill - Head Exam Head Exam: NORMAL INSPECTION - Respiratory Exam Respiratory Exam: Decreased Breath Sounds - Cardiovascular Exam Cardiovascular Exam: +S1, +S2 - GI/Abdominal Exam GI & Abdominal Exam: Soft. absent: Tenderness Assessment and Plan - Assessment and Plan (Free Text) Plan: Assessment Consider urinary tract infection, R/O prostate disease Parkinson's disease bipolar disorder chronic CHF obesity Plan continue Cefepime day 2 pending urine cx; blood cx are negative reviewed repeat CXR which does not show infiltrates will continue monitor clinically
--- NOTE | 2018-08-18 17:04 | CON ---
DATE: 08/18/2018 CHIEF COMPLAINT: Lethargy. HISTORY OF PRESENT ILLNESS: This 78-year-old man with history of Parkinson's disease with right hand resting tremor, mask-like facies, bipolar disorder, schizophrenia, CHF, obesity, who was brought from [facility], because he was lethargic, pinpoint pupils, Narcan was given in the field, had some mild better effect. The patient was not taking any over-sedating medications at the assisted. The patient has urinary tract infection, positive nitrites, on antibiotics. Urine culture is pending. CAT scan of the head showed no acute intracranial abnormalities. The patient does have features of Parkinson's and should be on Sinemet 25/100 p.o. t.i.d., and he is on Lexapro for depression and he is generally deconditioned. PAST MEDICAL HISTORY: As above. SOCIAL HISTORY: No illicit drug use, smoking or EtOH abuse. ALLERGIES: NO KNOWN DRUG ALLERGIES. MEDICATIONS: Reviewed by nurses's reconciliation sheet. REVIEW OF SYSTEMS: A 14-point review of systems is negative except as per the HPI. FAMILY HISTORY: Noncontributory. LABORATORY DATA: Sodium is 139, potassium 3.8, chloride of 105, carbon dioxide of 21, BUN and random glucose 107. PHYSICAL EXAMINATION: VITAL SIGNS: Temperature of 98.2, pulse rate of 72, blood pressure 189/84 and respiratory rate of 18. GENERAL: The patient is sitting up in bed, in no acute distress. HEENT: Atraumatic, normocephalic. PERRLA. Extraocular muscles intact. NECK: Supple. No JVD, no adenopathy noted. LUNGS: Clear to auscultation. No adventitious sounds. HEART: S1 and S2. Normal rate and rhythm. No murmurs, rubs or gallops. ABDOMEN: Soft, nontender and nondistended. Bowel sounds are present. Obese. EXTREMITIES: No clubbing. No cyanosis. Peripheral pulses 2+ felt bilaterally. NEUROLOGIC: The patient is alert and oriented to person and place. Recall after 5 minutes 0 to 3. Poor attention span. Slow thought process. Mask-like facies. Cranial nerves II through XII are intact. Motor exam: Has right hand resting pill-rolling tremor, mary in nature consistent with Parkinson's. Increased tone throughout with mild cogwheel rigidity at the wrist, moves all extremities equally. Sensory: Decreased light touch and pinprick up to the calves bilaterally. Decreased vibration of the toes. DTRs are 2+ throughout, 1 at both knees and ankles. Coordination: Spvwmi-[id number]-tyfu intact. No dysmetria noted. Gait is deferred for now. IMPRESSION: This is a 78-year-old male with history of Parkinson's disease, bipolar disorder, schizophrenia, congestive heart failure, obesity, deconditioned, who came here for lethargy, and was found to have urinary tract infection. His altered mental status and deconditioned state is secondary to urinary tract infection, unlikely any seizure type of disorder. He follows simple commands and he has Parkinson's disease and cognitive impairment. RECOMMENDATIONS: At this time I recommend; 1. Namenda 10 mg p.o. daily for his unlikely cognitive impairment probably from his Parkinson's disease. 2. Recommend him to be on Sinemet 25/100 p.o. t.i.d. for Parkinson's. 3. Monitor electrolytes and correct accordingly. 4. urinary tract infection and PT/OT, frequent rotation throughout the day and we will get MRI of the brain to see any structural abnormalities causing symptoms. Martín Whiteside MD
[2018-08-18] MEDS ORDERED: Furosemide 40 mg/5 mL Oral Soln UD PO ONE (18:18)
[2018-08-18] MEDS: Sodium Chloride 0.45% 1,000 ML IV SCH ×2 (19:27→21:08)
--- NOTE | 2018-08-18 21:58 | CON ---
CARDIOLOGY CONSULTATION DATE OF CONSULTATION: 08/18/2018 HISTORY OF PRESENT ILLNESS: The patient is a 78-year-old male who presents with altered mental status and lethargy. The patient has a history of Parkinson's, bipolar, and a history of schizophrenia. No angina and no shortness of breath was able to be elicited. The rest of his history is noncontributory. The patient does suffer from hypertension. REVIEW OF SYSTEMS: Noncontributory. PHYSICAL EXAMINATION: VITAL SIGNS: Blood pressure 189/84, the heart rate is in the 70s. NECK: Negative JVD. LUNGS: Decreased breath sounds. HEART: S1 and S2. EXTREMITIES: Without change. LABORATORY DATA: Hemoglobin is 14 with a white count of 11. Chemistries: BUN and creatinine are unremarkable. EKG shows normal sinus rhythm with nonspecific ST-T changes. IMPRESSION: 1. Altered mental status. 2. Hypertension. 3. History of Parkinson's. 4. History of schizophrenia. PLAN: Given these findings, we will obtain an echocardiogram to evaluate his LV function and to rule out valvular heart disease. Gerard Velasquez MD
[2018-08-19 09:07] LABS: ALB/GLOB RATIO 0.9 (1.1-1.8); ALBUMIN 2.9 g/dL (3.0-4.8); ALT/SGPT 24 U/L (7-56); AST/SGOT 20 U/L (17-59); BLOOD UREA NITROGEN 19 mg/dL (7-21); CALCIUM 8.5 mg/dL (8.4-10.5); GFR NON-AFRICAN AMERICAN > 60
[2018-08-19 09:10] LABS: BASO # 0.03 K/mm3 (0.0-2.0); BASO % 0.3 % (0.0-3.0); EOS # 0.3 (0.0-0.7); EOS % 3.3 % (1.5-5.0); GRAN # 5.12 (1.4-6.5); GRAN % 57.7 % (50.0-68.0); HEMOGLOBIN 14.2 g/dL (14.0-18.0); LYMPH # 2.7 (1.2-3.4); LYMPH % 29.9 % (22.0-35.0); MEAN CELL VOLUME 93.2 fl (80.0-105.0); MEAN CORPUSCULAR HEMOGLOBIN 30.1 pg (25.0-35.0); MEAN CORPUSCULAR HGB CONC 32.3 g/dl (31.0-37.0); MEAN PLATELET VOLUME 10.5 fl (7.0-11.0); MONO # 0.8 (0.1-0.6); MONO % 8.8 % (1.0-6.0); RBC 4.72 10^6/uL (3.5-6.1); RED CELL DISTRIBUTION WIDTH 14.9 % (11.5-14.5); WHITE BLOOD COUNT 8.9 10^3/uL (4.5-11.0)
[2018-08-19] MEDS: Potassium Chloride 20 mEq ER Tab PO SCH (10:50)
[2018-08-19] MEDS: Cefepime 1gm in NS 100ml 1 GM/100 ML BAG IVPB SCH (10:52)
[2018-08-19] MEDS: Pantoprazole 40 mg EC Tab PO SCH (10:53)
[2018-08-19] MEDS: Metoprolol Succinate 50 mg XL Tab PO SCH (10:53)
--- NOTE | 2018-08-19 12:06 | CARD ---
APPROVED REPORT Date of service: 08/19/2018 EXAM: Two-dimensional and M-mode echocardiogram with Doppler and color Doppler. INDICATION ALTERED MS 2D DIMENSIONS Left Atrium (2D)4.3 (1.6-4.0cm)IVSd2.0 (0.7-1.1cm) LVDd4.4 (3.9-5.9cm)PWd1.7 (0.7-1.1cm) LVDs2.9 (2.5-4.0cm)FS (%) 33.9 % LVEF (%)63.1 (>50%) M-Mode DIMENSIONS Aortic Root3.70 (2.2-3.7cm)Aortic Cusp Exc.1.90 (1.5-2.0cm) Aortic Valve AoV Peak Rixanuhn665.0cm/Asher Peak GR.16mmHg Mitral Valve MV E Muwpyuwh07.9cm/sMV A Iycxojwo28.4cm/sE/A ratio0.6 TDI Lateral E' Peak V7.90cm/sMedial E' Peak V4.48cm/sE/Lateral E'6.3 E/Medial E'11.1 Tricuspid Valve TR Peak Qrtjgqet475eu/sRAP [id number] Peak Gr.54mmHg [id number] LEFT VENTRICLE The left ventricle is normal size. There is mild concentric left ventricular hypertrophy. The left ventricular ejection fraction is within the normal range. Apical hypokinesis Transmitral Doppler flow pattern is Grade I-abnormal relaxation pattern. RIGHT VENTRICLE The right ventricle is normal size. There is normal right ventricular wall thickness. The right ventricular systolic function is normal. ATRIA The left atrium size is normal. The right atrium size is normal. AORTIC VALVE The aortic valve is not well visualized. There is mild aortic regurgitation. There is no aortic valvular stenosis. MITRAL VALVE The mitral valve is normal in structure. There is no mitral valve regurgitation noted. There is no mitral valve stenosis. TRICUSPID VALVE There is mild to moderate tricuspid regurgitation. There is moderate to severe pulmonary hypertension. GREAT VESSELS The aortic root is normal in size. PERICARDIAL EFFUSION There is a trace pericardial effusion. <Conclusion> The left ventricle is normal size. There is mild concentric left ventricular hypertrophy. The left ventricular ejection fraction is within the normal range. Apical hypokinesis Transmitral Doppler flow pattern is Grade I-abnormal relaxation pattern. There is mild aortic regurgitation. There is mild to moderate tricuspid regurgitation. There is moderate to severe pulmonary hypertension.
--- NOTE | 2018-08-19 14:22 | PN ---
DATE: 08/19/2018 SUBJECTIVE: I do think he is improving. We had a nice conversation this morning. He is eating okay. He is on IV antibiotics for UTI, grew out E. coli. He is also on IV fluids. He could not sleep last night. He asked for sleeping pills. We gave him Ambien 5 mg at nighttime. I believe, we also got a PSA to make sure we are not missing anything in the prostate. MEDICATIONS: He is on Apresoline, Catapres, Claritin, DuoNeb, Flomax, folic acid, Geodon, potassium replacement, Klonopin, Lasix, Lexapro, magnesium, Maxipime IV by Infectious Disease, Mobic, Namenda, Norvasc, Proscar, Protonix, vitamin C, and Zestril. I did stop his metoprolol because his pulse dropped into the 48 to 51 range. PHYSICAL EXAMINATION: VITAL SIGNS: Temperature 97.5, pulse 51, blood pressure 130/70, respiratory rate 20, and saturations 99% on room air. HEENT: Head is atraumatic and normocephalic. HEART: Regular rate LUNGS: Decreased breath sounds, but clear. ABDOMEN: Soft, morbidly obese. EXTREMITIES: Trace edema. LABORATORY DATA: Sodium 139, potassium 3.8, BUN 19, creatinine 0.6, chloride 76, CO2 of 84, calcium is 8.5, phosphorus is 3.7, magnesium 2.2, total bilirubin is 0.7, AST is 20, ALT is 24, alkaline phosphatase is 85, total protein is 6.1, TSH is 0.94. White count 8.9, better; hemoglobin 14.2; hematocrit 44; and platelets 139. E. coli grew out in urine culture. ASSESSMENT AND PLAN: We are going to give him IV antibiotics and we will hold off on the metoprolol. An MRI of the brain is pending. We will see what Cardiology has to add to the picture. Add Ambien. I will check his labs, PSA tomorrow. Hopefully another day or two of IV antibiotics. We will switch him to p.o. Hopefully, we will get him out on Tuesday. Also Neurology evaluation for his possible seizure activity. Fernando Stanley DO [facility] # [id number]
--- NOTE | 2018-08-19 14:42 | CP.PCM.PCO ---
Physician Communication Note - Physician Communication Note Physician Communication Note: MRI pending, JAKI arranged for 08/20/18, can cancel if needed
--- NOTE | 2018-08-19 16:05 | PN ---
DATE: 08/19/2018 LOCATION: The patient was seen earlier this morning in room 262, bed 2. SUBJECTIVE: The patient is awake and alert. He is back to his baseline mental status as per Dr. Fernando Stanley. He has had no fevers and no chills. OBJECTIVE: VITAL SIGNS: Temperature is 97, heart rate of 51, blood pressure is 136/70, respiratory rate of 20. HEENT: Unremarkable. NECK: Supple. LUNGS: Have decreased breath sounds. HEART: Normal S1 and S2. ABDOMEN: Soft, nontender. LABORATORY DATA: Reveals a white count of 8.9, hemoglobin of 14, and platelets of 139. Chemistries reveal a BUN of 19, creatinine 0.6. Urinalysis is noted. Too numerous to count wbc's, many bacteria, positive nitrites, positive leukocyte esterase. Microbiology reveals E. coli in the urine, which is pansensitive, resistance only to ampicillin and the blood cultures are negative. Review of orders, review of the patient to be on cefepime. ASSESSMENT AND PLAN: A 78-year-old male of Dr. Fernando Stanley, who was seen in room 262 earlier this morning with Escherichia coli, urinary tract infection, wants to rule out underlying prostate disease and complicated urinary tract infection in a man. We will check on the thyroid stimulating hormone, should have Urology evaluation in a patient with Parkinson's disease, bipolar, schizophrenia, chronic congestive heart failure and super morbid obesity with a body mass index of 51, pansensitive Escherichia coli. We will discontinue cefepime and deescalate the antibiotic to ceftriaxone 1 g at every 24 hours, may be able to switch to p.o. upon discharge pending Urology evaluation. Case discussed with Dr. Fernando Stanley. Alonzo Hodges MD
[2018-08-19] MEDS: Sodium Chloride 0.45% 1,000 ML IV SCH (17:24)
--- NOTE | 2018-08-19 17:49 | PN ---
DATE: 08/19/2018 Gerard Velasquez MD SUBJECTIVE: The patient denies any chest pain. No reported seizures today and no reported arrhythmia. PHYSICAL EXAMINATION: VITAL SIGNS: Blood pressure 139/71, heart rate 62, temperature 97.8, respirations 20. HEENT: Normocephalic. CHEST: Diminished breath sounds over the bases. HEART: S1 and S2 regular. EXTREMITIES: 1+ pitting edema. LABORATORY DATA: Today's hemoglobin and hematocrit 14.1 and 44.0, white count 8.9, platelet count 139,000. Today's SMA-7 is within normal limit except for anion gap of 9 and creatinine 0.6. Echocardiographic study revealed mild concentric LVH with apical hypokinesis, normal ejection fraction, diastolic dysfunction and mild aortic insufficiency with gsymuzhd-[id number] pulmonary hypertension. EKG revealed sinus bradycardia at the rate of 48 with first-degree AV block and nonspecific ST-T wave changes. ASSESSMENT: 1. Altered mental status. 2. Hypertension. 3. Parkinsonism. 4. History of schizophrenia. 5. Sinus bradycardia. 6. Mild aortic insufficiency. 7. Moderate to severe pulmonary hypertension. RECOMMENDATIONS: Continue K-Dur 20 mEq once a day, Geodon 40 mg once a day, Lasix 20 mg once a day, Lexapro 20 mg once a day, Namenda 10 mg once a day, Norvasc 5 mg once a day, Zestril 20 mg once a day. Discontinue clonidine. 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
[2018-08-19 18:23] VITALS: O2SAT 95
[2018-08-20 00:32] VITALS: RESP 20
[2018-08-20 06:14] LABS: HEMOGLOBIN 13.6 g/dL (14.0-18.0); MEAN CELL VOLUME 92.6 fl (80.0-105.0); MEAN CORPUSCULAR HEMOGLOBIN 30.6 pg (25.0-35.0); MEAN CORPUSCULAR HGB CONC 33.1 g/dl (31.0-37.0); MEAN PLATELET VOLUME 10.4 fl (7.0-11.0); RBC 4.44 10^6/uL (3.5-6.1); RED CELL DISTRIBUTION WIDTH 14.6 % (11.5-14.5)
[2018-08-20 06:19] LABS: ALB/GLOB RATIO 0.9 (1.1-1.8); ALBUMIN 2.8 g/dL (3.0-4.8); ALT/SGPT 25 U/L (7-56); AST/SGOT 18 U/L (17-59); BLOOD UREA NITROGEN 18 mg/dL (7-21); CALCIUM 8.1 mg/dL (8.4-10.5); GFR NON-AFRICAN AMERICAN > 60
[2018-08-20] MEDS ORDERED: cefTRIAXone 1 gm 1 GM/100 ML BAG IVPB SCH (10:00)
[2018-08-20] MEDS: Potassium Chloride 20 mEq ER Tab PO SCH (10:24)
[2018-08-20] MEDS: Pantoprazole 40 mg EC Tab PO SCH (10:24)
--- NOTE | 2018-08-20 10:30 | DS ---
HISTORY OF PRESENT ILLNESS: He is doing better. He is feeling better. He is on IV fluids, Ambien, Claritin, DuoNebs, Flomax, folic acid, Klonopin, Lasix, Lexapro, Mobic, Namenda, Norvasc, Proscar, Protonix, will be on IV Rocephin for 1 week at the [place] [facility], vitamins and Zestril. PHYSICAL EXAMINATION: VITAL SIGNS: He has 98 temperature, 54 pulse, 55/63 blood pressure. HEENT: Head is atraumatic, normocephalic. GENERAL: He is alert and talking comfortably, understand going back to his [place] [facility]. HEART: Regular rate. LUNGS: Decreased breath sounds but clear. ABDOMEN: Super morbid obese. EXTREMITIES: Trace edema. LABORATORY DATA: He has a 138 sodium, potassium 3.9, BUN 80, creatinine 0.74, GFR is greater than 60, sugar is 93, calcium is 8.1. Total bili is 0.6, AST is 18, ALT is 25, alk phos 81, total protein is 5.9. TSH is 0.94. PSA was 0.8. He has a 9 white count, 13.6 hemoglobin, 41.1, hematocrit with 142 platelets. He had E. coli in his urine and be discharged back to his nursing today for another week worth of Rocephin. Fernando Stanley DO
[2018-08-20 12:07] VITALS: BP 136/65; TEMP 98
--- NOTE | 2018-08-20 13:34 | PN ---
DATE: 08/20/2018 SUBJECTIVE: The patient is seen earlier today in room 262, bed 2. He is awake, he is responsive. He said he had an uneventful night. He has not had any fevers, nausea or vomiting. He has tolerated his medications well. PHYSICAL EXAMINATION: VITAL SIGNS: Temperature is 98, blood pressure is 130/60, respiratory rate of 15 to 16, heart rate of 52. HEENT: Unremarkable. NECK: Supple. LUNGS: Decreased breath sounds. HEART: Normal S1 and S2. ABDOMEN: Soft. LABORATORY EXAMINATION: Reveals a white count of 9000, hemoglobin of 13, and BUN of 18, creatinine of 0.7. Urinalysis is noted and microbiology reveals E. coli in the urine. Blood cultures are negative and the patient had a MRI of the brain which results are pending. Dr. Fernando Stanley's discharge summary is reviewed. ASSESSMENT AND PLAN: A 78-year-old male who is seen earlier today with E. coli, urinary tract infection, must rule out underlying prostate disease and complicated urinary tract infection with E. coli demand, and the patient is to follow up with Urology evaluation. The patient who has Parkinson and bipolar, schizophrenia, chronic congestive heart failure, super morbid obesity, BMI or 51 and pansensitive E. coli and may be able to switch to p.o. upon discharge as discussed with the PMD. Currently, on ceftriaxone. Alonzo Hodges MD
--- NOTE | 2018-08-20 15:14 | MRI ---
Date of service: 08/19/2018 PROCEDURE: MRI BRAIN WITHOUT CONTRAST HISTORY: AMS COMPARISON: Comparison made with prior CT scan of the brain dated 08/17/2018. TECHNIQUE: Multiplanar, multisequence MR images of the brain were obtained without intravenous contrast enhancement. FINDINGS: HEMORRHAGE: No evidence of acute parenchymal, Subarachnoid or extra-axial hemorrhage. There are few tiny focal areas of dark T2 signal seen in the right and left cerebellar hemisphere and left occipito parietal watershed zone possibly representing hemosiderin deposition as no corresponding calcification changes are present in these locations on prior CT scan of the brain. DWI: No evidence of an acute or early subacute infarction seen on diffusion imaging. BRAIN PARENCHYMA: Mild in moderate diffuse/confluent chronic periventricular white matter ischemic changes are seen with multiple more discrete of chronic infarcts scattered about the deep and subcortical white matter both cerebral hemispheres, both basal nuclei and cerebellar hemispheres. Moderate central volume loss evidenced by disproportionate enlargement of the ventricles as VENTRICLES: No obstructive hydrocephalus. CRANIUM: Unremarkable. ORBITS: Orbits and contents unremarkable. PARANASAL SINUSES/MASTOIDS: Clear VASCULAR SYSTEM: Visualized major vascular flow voids at skull base patent. OTHER FINDINGS: None. IMPRESSION: No acute intracranial hemorrhage. Questionable few small hemosiderin deposits both cerebellar hemispheres and left occipito parietal for should zone Mild to moderate chronic white matter ischemic changes with multiple more discrete deep and subcortical white matter, basal nuclei and bilateral cerebellar ischemic changes. Moderate central volume loss as above.
[2018-08-20 16:08] VITALS: PULSE 59
--- NOTE | 2018-08-20 19:26 | PN ---
DATE: 08/20/2018 SUBJECTIVE: The patient denies any chest pain or shortness of breath at this time. PHYSICAL EXAMINATION VITAL SIGNS: Blood pressure 136/65, heart rate 52, temperature 98, respirations 20. HEENT: Normocephalic. CHEST: Clear. HEART: S1 and S2 regular. EXTREMITIES: 1+ pitting edema. LABORATORY DATA: Today's hemoglobin and hematocrit are 13.6 and 41.1. White count and platelet count are within normal limit. Today's SMA-7 is within normal limit except for anion gap of 8 and creatinine of 0.7. ASSESSMENT: 1. Altered mental status. 2. Hypertension. 3. Parkinsonism. 4. History of schizophrenia. 5. Sinus bradycardia. 6. Mild aortic insufficiency. 7. Ynzscvcj-py-hldygi pulmonary hypertension. RECOMMENDATIONS: Continue current Ambien 5 mg at bedtime, Flomax 0.4 mg once a day, K-Dur 20 mEq once a day, Geodon 40 mg once a day, Lasix 20 mg p.o. once a day, Lexapro 20 mg once a day, Norvasc 5 mg once a day and Zestril 20 mg once a day. Henry Corbett MD
== END 2018-08-20 16:40 | DRG 690 ==
LOC: ED 07:02 → ERH 10:45 → 2RNO 13:30
PROVIDERS: ADMIT Family Medicine; ATTEND Family Medicine
PROC: 0T9B70Z Drainage of Bladder with Drainage Device, Via Natural or Artificial Opening (ICD-10-PCS; principal; 2018-08-17)
PROC: 3E0F73Z Introduction of Anti-inflammatory into Respiratory Tract, Via Natural or Artificial Opening (ICD-10-PCS; 2018-08-17)
PROC: 3E0F7GC Introduction of Other Therapeutic Substance into Respiratory Tract, Via Natural or Artificial Opening (ICD-10-PCS; 2018-08-17)
DX: N39.0 Urinary tract infection, site not specified (principal); Z68.43 Body mass index [BMI] 50.0-59.9, adult; R41.82 Altered mental status, unspecified; F31.9 Bipolar disorder, unspecified; F20.9 Schizophrenia, unspecified; Z79.899 Other long term (current) drug therapy; R00.1 Bradycardia, unspecified; I44.0 Atrioventricular block, first degree; I50.9 Heart failure, unspecified; I11.0 Hypertensive heart disease with heart failure; G20 Parkinson's disease; E66.01 Morbid (severe) obesity due to excess calories; J44.9 Chronic obstructive pulmonary disease, unspecified; B96.20 Unspecified Escherichia coli [E. coli] as the cause of diseases classified elsewhere; F41.0 Panic disorder [episodic paroxysmal anxiety]; F42.9 Obsessive-compulsive disorder, unspecified; I27.20 Pulmonary hypertension, unspecified; I35.1 Nonrheumatic aortic (valve) insufficiency; I73.9 Peripheral vascular disease, unspecified; K21.9 Gastro-esophageal reflux disease without esophagitis; Z86.73 Personal history of transient ischemic attack (TIA), and cerebral infarction without residual deficits; Z87.891 Personal history of nicotine dependence; Z90.49 Acquired absence of other specified parts of digestive tract

== ENCOUNTER 2018-09-26 05:47 | Observation (INO) | payer MEDICARE ==
--- NOTE | 2018-09-26 05:55 | EDPD ---
HPI Stroke - General Time Seen by Provider: 09/26/18 05:53 Historian: Patient, Longterm - History of Present Illness Narrative History of Present Illness (Free Text): 09/26/18 05:53 Federico Ortiz is a 78 year old male, whose past medical history includes Parkinson's disease, bipolar disorder, schizophrenia, CHF, TIA, GERD, anxiety, and depression, who presents to the Emergency department transferred from retirement for right arm weakness. Patient states he woke up this morning with right arm weakness, right arm numbness, and difficulty forming sentences. Patient denies any headache, chest pain, shortness of breath, abdominal pain, nausea, vomiting, or any other complaints. PMD: Dr. Stanley Date:: 09/26/18 Time: 05:54 Onset:: Today Timing: Currently Symptomatic Context: Home (care home) Associated Symptoms: Dysarthria, Numbness Exacerbated by: Nothing Relieved by: Nothing - Location Location: Speech Locate Left: Upper extremity rTPA Inclusion/Exclusion - Refusal of Treatment Patient Refused Treatment: No - Inclusion Criteria for Altepase Patient is 18 years or Older: Yes The Clinical Diagnosis of Ischemic Stroke That is Causing a Potentially Disabling Neurological Deficit: No Time of Onset is Well Established to be Less Than 270 Minute Before Treatment Would Begin: No Risk/Benefit Discussed With Patient/Family Member Present: No - Exclusion Criteria for Altepase Uncontrolled Hypertension at Time of Treatment (Systolic BP above 185 or Diastolic BP above 110 mmHg): No Active Internal Bleeding: No Known Bleeding Diathesis Including but Not Limited to: Platelets Below 100,000/mm,PTT Above 40 sec After Heparin Use, Current Use of Oral Anitcoagulant With INR Greater Than 1.7 or PT Greater Than 15 secs: No Evidence of an Intracranial Hemorrhage: No Evidence of Major Acute Infarct With Signs Greater Than 1/3 MCA Territory: No Suspicion of Subarachnoid Hemorrhage on Pretreatment Evaluation Even if CT Head Negative For Hemorrhage: No - Warning to TPA With Conditions Following Conditions Weighed Against Anticipated Benefit: Yes Condition: Rapid Improvement, Age Greater Than 75 years Past Medical History - Provider Review Nursing Documentation Reviewed: Yes - Infectious Disease Hx of Infectious Diseases: None - Cardiac Hx Cardiac Disorders: Yes Hx Congestive Heart Failure: Yes Hx Hypertension: Yes - Pulmonary Hx Respiratory Disorders: No - Neurological Hx Neurological Disorder: Yes Hx Parkinson's Disease: Yes Hx Transient Ischemic Attacks (TIA): Yes (X2) Other/Comment: extremity weakness upper and lower - HEENT Hx Cataracts: Yes (b/l no sx as per pt) Other/Comment: ALLERGIC RHINITIS - Renal Hx Renal Disorder: No - Endocrine/Metabolic Hx Endocrine Disorders: No - Hematological/Oncological Hx Blood Disorders: Yes - Integumentary Hx Dermatological Disorder: Yes Other/Comment: indented scar to inner left leg just below knee fold from benign tumor removal, ble +1 pitting edema discolored tight skin, hammertoes left ft 2 3 4 5, dry skin ble and feet, swollen reddened scrotum, multiple age spots to back - Musculoskeletal/Rheumatological Hx Arthritis: Yes - Gastrointestinal Hx Gastrointestinal Disorders: Yes (obese) Hx Gastroesophageal Reflux: Yes Other/Comment: egd with bx 09/15/2017 due to c/o nausea: dx gastritis - Genitourinary/Gynecological Hx Genitourinary Disorders: Yes (frequency) Hx Incontinence: Yes (OCCASSIONALLY) - Psychiatric Hx Psychophysiologic Disorder: Yes Hx Anxiety: Yes Hx Bipolar Disorder: Yes Hx Depression: Yes Hx Emotional Abuse: No Hx Hallucinations: No Hx Panic Disorder: Yes Hx Post Traumatic Stress Disorder: No Hx Psychosis: No Hx Physical Abuse: No Hx Schizophrenia: No Hx Sexual Abuse: No Hx Substance Use: No Other/Comment: OCD, community resource use - Surgical History Hx Appendectomy: Yes Hx Orthopedic Surgery: Yes (orif left hip fx 12/04/2013) - Anesthesia Hx Anesthesia: Yes Hx Anesthesia Reactions: No Hx Malignant Hyperthermia: No - Suicidal Assessment Feels Threatened In Home Enviroment: No Family/Social History - Family/Social History Family History: Non-Contributory - Review Nursing documentation reviewed.: Yes Allergies/Home Meds Allergies/Adverse Reactions: Allergies No Known Allergies Allergy (Verified 09/26/18 06:19) Home Medications: Home Meds Medication Instructions Recorded Confirmed Escitalopram [Lexapro] 20 mg PO DAILY 12/04/13 08/17/18 Finasteride [Proscar] 5 mg PO DAILY 12/04/13 08/17/18 Furosemide [Lasix] 20 mg PO DAILY 12/04/13 08/17/18 Tamsulosin [Flomax] 0.4 mg PO DAILY 12/04/13 08/17/18 Albuterol/Ipratropium [Duoneb 3 3 ml NEB Q6 PRN 09/11/17 08/17/18 mg/0.5 mg (3 ml) UD] Famotidine [Pepcid] 20 mg PO BID 09/11/17 08/17/18 Loratadine [Claritin] 10 mg PO DAILY 09/11/17 08/17/18 Magnesium 250 mg PO HS 09/11/17 08/17/18 Acetaminophen [Tylenol] 325 mg PO Q4 PRN 08/17/18 08/17/18 Ascorbic Acid [Vitamin C] 500 mg PO DAILY 08/17/18 08/17/18 Guaifenesin [Wal-Tussin] 15 ml PO Q6 PRN 08/17/18 08/17/18 Lisinopril [Zestril] 20 mg PO DAILY 08/17/18 08/17/18 Loperamide Hydrochloride [Imodium] 0 mg PO Q6 08/17/18 08/17/18 Magnesium Hydroxide [Milk Of 0 ml PO PRN PRN 08/17/18 08/17/18 Magnesia] Meloxicam [Mobic] 15 mg PO DAILY 08/17/18 08/17/18 Metoprolol Succinate [Kapspargo 50 mg PO DAILY 08/17/18 08/17/18 Sprinkle] Omeprazole 20 mg PO DAILY 08/17/18 08/17/18 Potassium Chloride [Klor-Con] 20 meq PO DAILY 08/17/18 08/17/18 Sod Phos,M-B/Na Phos,Di-Ba [Enema] 0 ml RC Q8 PRN 08/17/18 08/17/18 Ziprasidone HCl 40 mg PO DAILY 08/17/18 08/17/18 clonazePAM [Klonopin] 1 mg PO BID 08/17/18 08/17/18 Review of Systems - Physician Review All systems were reviewed & negative as marked: Yes - Review of Systems Constitutional: Normal. absent: Fevers Eyes: Normal ENT: Normal Respiratory: Normal. absent: SOB, Cough Cardiovascular: Normal. absent: Chest Pain Gastrointestinal: Normal. absent: Abdominal Pain, Diarrhea, Nausea, Vomiting Genitourinary Male: Normal. absent: Dysuria, Frequency, Urinary Output Changes Musculoskeletal: Normal. absent: Back Pain, Neck Pain Skin: Normal. absent: Rash Neurological: Focal Weakness (+right arm weakness/right arm numbness), Speech Changes. absent: Headache, Dizziness Endocrine: Normal Hemo/Lymphatic: Normal Psychiatric: Normal ED Stroke Physical Exam Vital Signs Reviewed: Yes Blood Pressure: Normal Pulse: Regular Respiratory Rate: Normal Appearance: Positive for: Well-Appearing, Cachectic Pain Distress: None Mental Status: Positive for: Alert and Oriented X 3 - Systems Exam Head: Present: Atraumatic, Normocephalic, Other (Mask-like facies) Pupils: Present: PERRL Extroacular Muscles: Present: EOMI Conjunctiva: Present: Normal Mouth: Present: Moist Mucous Membranes Neck: Present: Normal Range of Motion Respiratory/Chest: Present: Clear to Auscultation, Good Air Exchange. No: Respiratory Distress, Accessory Muscle Use Cardiovascular: Present: Regular Rate and Rhythm, Normal S1, S2. No: Murmurs Abdomen: Present: Normal Bowel Sounds. No: Tenderness, Distention, Peritoneal Signs Back: Present: GCS, CN, SP Upper Extremity: Present: Normal ROM, NORMAL PULSES, Neurovascularly Intact, Capillary Refill < 2s. No: Cyanosis, Edema Lower Extremity: Present: Normal Inspection. No: Edema Neurologic: Present: GCS=15, CN II-XII Intact, Speech Normal. No: Motor Func Grossly Intact ( cog-wheel rigidity in right wrist/?slight decreased motor right arm), Normal Sensory Function (Slight decreased sensation in right arm and left arm to pinprick) Skin: Present: Warm, Dry, Normal Color. No: Rashes Lymphatic: Present: OX3, NI, NC Psychiatric: Present: Alert, Oriented x 3, Normal Insight, Normal Concentration Medical Decision Making ED Course and Treatment: 09/26/18 05:54 Impression: 78 year old male sent from retirement complaining of right arm weakness, right arm numbness, and difficulty forming sentences since waking up this morning. Plan: -- CT Head w/o contrast -- EKG -- CXR -- Labs, blood type and screen, lipid panel, troponin -- IV fluids -- Reassess and disposition Prior Visits: Notes and results from previous visits were reviewed. Progress Notes: 09/26/18 05:54 Pt seen on arrival to ED. Code Stroke called. Pt taken to CT scan. 09/26/18 06:40 Case was discussed with neurologist/Patient not a candidate for TPA given resolution of symptoms /unclear time of onset 09/26/18 06:55 Case d/w present in ED to see patient.Accepts to his service. - EKG Interpretation EKG Interpretation (Text): 09/26/18 06:51 EKG-Sinus bradycardia@55,1st degree AV block,no acute changes Interpreted by ED Physician: Yes Type: 12 lead EKG NIHSS Scale(Round Top) 2 Time Performed: 06:15 - How Severe is the Stoke Baseline Level of Consciousness: 0=Alert LOC to Questions: 0=Both comments correct LOC to commands: 0=Obeys both correctly Best Gaze: 0=Normal Visual: 0=No visual loss Facial: 0=Normal Motor Arm - Left: 0=No drift Motor Arm - Right: 0=No drift Motor Leg - Left: 0=No drift Motor Leg - Right: 0=No drift Limb Ataxia: 0=Absent Sensory: 0=Normal Best Language: 0=No aphasia Dysarthia: 0=Normal articulation Extinction & Inattention (Neglect): 0=Normal, no object Score: 0 Risk Level: No Stroke Risk - Scribe Statement The provider has reviewed the documentation as recorded by the Lenora Steel Provider Scribe Attestation: All medical record entries made by the Adrienneibfelecia were at my direction and personally dictated by me. I have reviewed the chart and agree that the record accurately reflects my personal performance of the history, physical exam, medical decision making, and the department course for this patient. I have also personally directed, reviewed, and agree with the discharge instructions and disposition. NIHSS Scale (Round Top) Time Performed: 05:54 - How Severe is the Stoke Baseline Level of Consciousness: 0=Alert LOC to Questions: 0=Both comments correct LOC to commands: 0=Obeys both correctly Best Gaze: 0=Normal Visual: 0=No visual loss Facial: 0=Normal Motor Arm - Left: 0=No drift Motor Arm - Right: 1=Drift noted before 10 sec Motor Leg - Left: 0=No drift Motor Leg - Right: 0=No drift Limb Ataxia: 0=Absent Sensory: 1=Mild to moderate loss Best Language: 0=No aphasia Dysarthia: 0=Normal articulation Extinction & Inattention (Neglect): 0=Normal, no object Score: 2 Risk Level: Minor Stroke Risk Disposition/Present on Arrival - Present on Arrival Any Indicators Present on Arrival: No History of DVT/PE: No History of Uncontrolled Diabetes: No Urinary Catheter: Yes (inserted in ed) History Surgical Site Infection Following: None - Disposition Have Diagnosis and Disposition been Completed?: Yes Diagnosis: Parkinson disease, TIA (transient ischemic attack) Disposition: HOSPITALIZED Disposition Time: 06:53 Patient Problems: Current Active Problems Problem Status Onset Parkinson disease Acute TIA (transient ischemic attack) Acute Condition: STABLE Referrals: Tyrone Abbott MD [Primary Care Provider] - Follow up with primary
[2018-09-26 06:19] VITALS: BMI 45.9
[2018-09-26 06:48] LABS: BASO # 0.03 K/mm3 (0.0-2.0); BASO % 0.3 % (0.0-3.0); EOS # 0.3 (0.0-0.7); EOS % 3.8 % (1.5-5.0); HEMOGLOBIN 14.4 g/dL (14.0-18.0); LYMPH # 2.8 (1.2-3.4); MEAN CELL VOLUME 93.3 fl (80.0-105.0); MEAN CORPUSCULAR HEMOGLOBIN 31.2 pg (25.0-35.0); MEAN CORPUSCULAR HGB CONC 33.5 g/dl (31.0-37.0); MEAN PLATELET VOLUME 10.4 fl (7.0-11.0); MONO # 0.6 (0.1-0.6); MONO % 6.9 % (1.0-6.0); RBC 4.61 10^6/uL (3.5-6.1); RED CELL DISTRIBUTION WIDTH 14.7 % (11.5-14.5); WHITE BLOOD COUNT 8.7 10^3/uL (4.5-11.0)
[2018-09-26 06:51] LABS: INR 1.28; PARTIAL THROMBOPLASTIN TIME 35.6 Seconds (26.9-38.3); PROTHROMBIN TIME 14.5 SECONDS (9.4-12.5)
[2018-09-26 06:59] LABS: ALBUMIN 3.3 g/dL (3.0-4.8); ALT/SGPT 24 U/L (7-56); AST/SGOT 22 U/L (17-59); BLOOD UREA NITROGEN 18 mg/dL (7-21); CALCIUM 8.8 mg/dL (8.4-10.5); GFR NON-AFRICAN AMERICAN > 60; HDL CHOLESTEROL 28 mg/dL (29-60)
[2018-09-26] MEDS: Sodium Chloride 0.9% 1,000 ML IV SCH ×2 (07:07→18:27)
[2018-09-26 07:09] LABS: TROPONIN I 0.01 ng/mL
[2018-09-26 07:10] LABS: LDL CHOLESTEROL 62 mg/dL (0-129)
--- NOTE | 2018-09-26 08:47 | CT ---
Date of service: 09/26/2018 PROCEDURE: CT HEAD WITHOUT CONTRAST. HISTORY: Code Stroke COMPARISON: 08/17/2018 TECHNIQUE: Axial computed tomography images were obtained through the head/brain without intravenous contrast. Radiation dose: Total exam DLP = 965.74 mGy-cm. This CT exam was performed using one or more of the following dose reduction techniques: Automated exposure control, adjustment of the mA and/or kV according to patient size, and/or use of iterative reconstruction technique. FINDINGS: HEMORRHAGE: No intracranial hemorrhage. BRAIN: No mass effect or edema. Moderate diffuse age-appropriate cerebral atrophy. Moderate patchy periventricular and deep/subcortical white matter lucency consistent with microvascular white matter ischemic change. No evidence of acute infarct. VENTRICLES: Unremarkable. No hydrocephalus. CALVARIUM: Unremarkable. PARANASAL SINUSES: Minimal chronic ethmoid and bilateral maxillary sinusitis. MASTOID AIR CELLS: Unremarkable as visualized. No inflammatory changes. OTHER FINDINGS: None. IMPRESSION: No intracranial mass, hemorrhage or evidence of acute infarct. Age related atrophy and chronic white matter ischemic change. The preliminary findings for this examination were reported by [facility] [place] [facility] at 6:24 a.m. on 09/26/2018. There is concurrence of this report with the preliminary findings.
[2018-09-26] MEDS ORDERED: Iohexol 350 MG/100 ML VIAL ONE (09:40)
[2018-09-26] MEDS ORDERED: Albuterol-Ipratrop 3 mg / 0.5 (3 ml) UD INH PRN (09:52)
[2018-09-26] MEDS ORDERED: Non Formulary Medication (Omeprazole [Omeprazole] 20 MG) PO SCH (10:00)
[2018-09-26] MEDS ORDERED: METOPROLOL SUCCINATE 50 MG PO SCH (10:00)
[2018-09-26] MEDS ORDERED: Pantoprazole 20 mg EC Tab PO ONE (10:00)
[2018-09-26] MEDS ORDERED: ZIPRASIDONE HCL 40 MG PO SCH (10:00)
--- NOTE | 2018-09-26 10:57 | CARD ---
APPROVED REPORT Date of service: 09/26/2018 EKG Measurement Heart [id number] <Conclusion> Sinus bradycardia with 1st degree AV block Otherwise normal ECG
--- NOTE | 2018-09-26 13:22 | CP.PCM.CON ---
History of Present Illness - History of Present Illness History of Present Illness: PGY-3 Neurology consult note for Dr. Garsia's service consulted by Iona Stanley 78 year old male with past medical history of Parkinson's disease, bipolar disorder, schizophrenia, CHF, CVA, GERD, anxiety, and depression, who presented to the Emergency department transferred from [place] [facility] for right arm weakness and numbness. Patient states he woke up this morning with right arm weakness and numbness. He also reports difficulty forming sentences. Patient denies any headache, chest pain, shortness of breath, abdominal pain, nausea, vomiting, or any other complaints. 12 point ROS is negative. PMH: Parkinson's disease, bipolar disorder, schizophrenia, CHF, CVA, GERD, anxiety, and depression PSH: ORIF of left hip, appendectomy social history: former smoker, no alcohol or illict drug use allergy: NKDA Review of Systems - Review of Systems All systems: reviewed and no additional remarkable complaints except Past Patient History - Infectious Disease Hx of Infectious Diseases: None - Past Medical History & Family History Past Medical History?: Yes - Past Social History Smoking Status: Former Smoker - CARDIAC Hx Cardiac Disorders: Yes Hx Congestive Heart Failure: Yes Hx Hypertension: Yes - PULMONARY Hx Respiratory Disorders: No - NEUROLOGICAL Hx Neurological Disorder: Yes Hx Parkinson's Disease: Yes Hx Transient Ischemic Attacks (TIA): Yes (X2) Other/Comment: extremity weakness upper and lower - HEENT Hx Cataracts: Yes (b/l no sx as per pt) Other/Comment: ALLERGIC RHINITIS - RENAL Hx Chronic Kidney Disease: No - ENDOCRINE/METABOLIC Hx Endocrine Disorders: No - HEMATOLOGICAL/ONCOLOGICAL Hx Blood Disorders: Yes - INTEGUMENTARY Hx Dermatological Problems: Yes Other/Comment: indented scar to inner left leg just below knee fold from benign tumor removal, ble +1 pitting edema discolored tight skin, hammertoes left ft 2 3 4 5, dry skin ble and feet, swollen reddened scrotum, multiple age spots to back - MUSCULOSKELETAL/RHEUMATOLOGICAL Hx Arthritis: Yes - GASTROINTESTINAL Hx Gastrointestinal Disorders: Yes (obese) Hx Gastroesophageal Reflux: Yes Other/Comment: egd with bx 09/15/2017 due to c/o nausea: dx gastritis - GENITOURINARY/GYNECOLOGICAL Hx Genitourinary Disorders: Yes (frequency) Hx Incontinence: Yes (OCCASSIONALLY) - PSYCHIATRIC Hx Psychophysiologic Disorder: Yes Hx Anxiety: Yes Hx Bipolar Disorder: Yes Hx Depression: Yes Hx Emotional Abuse: No Hx Hallucinations: No Hx Panic Symptoms: Yes Hx Post Traumatic Stress Disorder: No Hx Psychosis: No Hx Physical Abuse: No Hx Schizophrenia: No Hx Sexual Abuse: No Hx Substance Use: No Other/Comment: OCD, community resource use - SURGICAL HISTORY Hx Appendectomy: Yes Hx Orthopedic Surgery: Yes (orif left hip fx 12/04/2013) - ANESTHESIA Hx Anesthesia: Yes Hx Anesthesia Reactions: No Hx Malignant Hyperthermia: No Meds Allergies/Adverse Reactions: Allergies Allergy/AdvReac Type Severity Reaction Status Date / Time No Known Allergies Allergy Verified 09/26/18 11:27 - Medications Medications: Current Medications Albuterol/Ipratropium (Duoneb 3 Mg/0.5 Mg (3 Ml) Ud) 3 ml INH Q6 PRN PRN Reason: Shortness of Breath Clonazepam (Klonopin) 1 mg PO BID [facility]; Protocol Last Admin: 09/26/18 10:44 Dose: 1 mg Escitalopram Oxalate (Lexapro) 20 mg PO DAILY [facility] Last Admin: 09/26/18 12:15 Dose: 20 mg Famotidine (Pepcid) 20 mg PO BID [facility] Last Admin: 09/26/18 10:44 Dose: 20 mg Finasteride (Proscar) 5 mg PO DAILY [facility] Last Admin: 09/26/18 12:16 Dose: 5 mg Sodium Chloride (Sodium Chloride 0.9%) 1,000 mls @ 100 mls/hr IV .Q10H [facility] Last Admin: 09/26/18 07:07 Dose: 100 mls/hr Lisinopril (Zestril) 20 mg PO DAILY [facility] Last Admin: 09/26/18 10:46 Dose: Not Given Memantine (Namenda) 10 mg PO DAILY [facility] Last Admin: 09/26/18 10:44 Dose: 10 mg Non-Formulary Medication (Magnesium [Magnesium]) 250 mg PO HS [facility] Non-Formulary Medication (Metoprolol Succinate [Kapspargo Sprinkle]) 50 mg PO DAILY [facility] Pantoprazole Sodium (Protonix Ec Tab) 20 mg PO ACB [facility] Tamsulosin HCl (Flomax) 0.4 mg PO DAILY [facility] Last Admin: 09/26/18 10:44 Dose: 0.4 mg Ziprasidone (Geodon Cap) 40 mg PO DAILY LI Zolpidem Tartrate (Ambien) 5 mg PO HS PRN; Protocol PRN Reason: Insomnia Physical Exam - Constitutional Appears: No Acute Distress - Head Exam Head Exam: ATRAUMATIC, NORMAL INSPECTION, NORMOCEPHALIC - Eye Exam Eye Exam: EOMI Pupil Exam: NORMAL ACCOMODATION, PERRL - Respiratory Exam Respiratory Exam: NORMAL BREATHING PATTERN. absent: Respiratory Distress - Cardiovascular Exam Cardiovascular Exam: REGULAR RHYTHM - Neurological Exam Neurological exam: Alert, Oriented x3 Additional comments: decreased sensation of Right , hypophonia, bradykinesia, cogwheel rigidity, no focal deficient - Expanded Neurological Exam Expanded Patient oriented to: person, place, time Cranial nerves: EOM's Intact: Normal, Facial Palsey w/Forehead Movement: Normal, Facial Palsey w/o Forehead Movement: Normal, Facial Sensation: Normal, Gag Reflex: Normal, Nystagmus: Normal, Tongue Deviation: Normal Cerebellar Function: Finger to Nose: Normal Upper motor neuron: Pronator Drift: Normal Neuro motor strength exam: Right Upper Extremity: 4 (decreased mingler operator strength ), Left Lower Extremity: 3, Right Lower Extremity: 3 Coma Scale Eye Opening: SPONTANEOUS Coma Scale Motor Response: OBEYS COMMANDS Coma Scale Verbal: Oriented Coma Scale Total: 15 - Psychiatric Exam Psychiatric exam: Normal Affect, Normal Mood - Skin Skin Exam: Dry, Intact, Normal Color, Warm Results - Vital Signs Recent Vital Signs: Last Vital Signs Temp 97.9 F 09/26/18 09:30 Pulse 67 09/26/18 09:30 Resp 22 09/26/18 09:30 BP 112/49 L 09/26/18 09:30 Pulse Ox 94 L 09/26/18 06:16 - Labs Result Diagrams: 09/26/18 06:27 09/26/18 06:27 Labs: Laboratory Results - last 24 hr 09/26/18 09/26/18 09/26/18 06:27 06:27 06:27 WBC 8.7 RBC 4.61 Hgb 14.4 Hct 43.0 MCV 93.3 MCH 31.2 MCHC 33.5 RDW 14.7 H Plt Count 154 MPV 10.4 Neut % (Auto) 57.0 Lymph % (Auto) 32.0 Desha % (Auto) 6.9 H Eos % (Auto) 3.8 Baso % (Auto) 0.3 Lymph # (Auto) 2.8 Desha # (Auto) 0.6 Eos # (Auto) 0.3 Baso # (Auto) 0.03 Absolute Neuts (auto) 4.92 PT 14.5 H INR 1.28 APTT 35.6 Sodium 139 Potassium 3.8 Chloride 103 Carbon Dioxide 33 Anion Gap 7 L BUN 18 Creatinine 0.8 Est GFR ( Amer) > 60 Est GFR (Non-Af Amer) > 60 Random Glucose 106 Hemoglobin A1c Calcium 8.8 Total Bilirubin 0.5 AST 22 ALT 24 Alkaline Phosphatase 103 Troponin I 0.01 D Total Protein 6.8 Albumin 3.3 Globulin 3.4 Albumin/Globulin Ratio 1.0 L Triglycerides 82 Cholesterol 109 L LDL Cholesterol Direct 62 HDL Cholesterol 28 L Blood Type Antibody Screen BBK History Checked 09/26/18 09/26/18 06:27 08:25 WBC RBC Hgb Hct MCV MCH MCHC RDW Plt Count MPV Neut % (Auto) Lymph % (Auto) Desha % (Auto) Eos % (Auto) Baso % (Auto) Lymph # (Auto) Desha # (Auto) Eos # (Auto) Baso # (Auto) Absolute Neuts (auto) PT INR APTT Sodium Potassium Chloride Carbon Dioxide Anion Gap BUN Creatinine Est GFR ( Amer) Est GFR (Non-Af Amer) Random Glucose Hemoglobin A1c 5.5 Calcium Total Bilirubin AST ALT Alkaline Phosphatase Troponin I Total Protein Albumin Globulin Albumin/Globulin Ratio Triglycerides Cholesterol LDL Cholesterol Direct HDL Cholesterol Blood Type O POSITIVE Antibody Screen Negative BBK History Checked Patient has bt Assessment & Plan - Assessment and Plan (Free Text) Assessment: 78 year old male with past medical history of Parkinson's disease, bipolar disorder, schizophrenia, CHF, CVA, GERD, anxiety, and depression, who presented to the Emergency department transferred from [place] [facility] for right arm weakness and numbness, will evaluate for possible CVA, NIHSS score of 2. Plan - CT head showed no acute symptoms - CT head and neck showed no occlusion or stenoss, - will order MRI - echo on 08/19/18 showed EF of 67%, apical hypokinesis, moderate pulmonary HTN - patient has history of Parkinson's but not currently on any medication recommend starting sinemet 25/100 BID. case seen and discussed with Dr. Garsia
--- NOTE | 2018-09-26 13:25 | CT ---
Date of service: 09/26/2018 PROCEDURE: CT Angiography of the Brain. HISTORY: TIA/CVA symptoms COMPARISON: None available. TECHNIQUE: CT angiography of the intracranial arteries was performed. Coronal and sagittal maximum intensity projection reformated images were generated. Radiation dose: Total exam DLP = 790.45 mGy-cm. This CT exam was performed using one or more of the following dose reduction techniques: Automated exposure control, adjustment of the mA and/or kV according to patient size, and/or use of iterative reconstruction technique. FINDINGS: INTERNAL CEREBRAL ARTERIES: Note is made of partially calcified atherosclerosis of the bilateral cavernous internal carotid artery segments without significant stenosis. The skull base, petrous, and supraclinoid segments are bilaterally widely patent. The skull base, petrous, and supraclinoid segments are bilaterally widely patent. ANTERIOR CEREBRAL ARTERIES: Unremarkable. A1 and A2 segments are widely patent. Smaller distal branches unremarkable, as visualized. MIDDLE CEREBRAL ARTERIES: Unremarkable. M1 and M2 segments are widely patent. Perisylvian branches grossly symmetric. POSTERIOR CIRCULATION: Basilar Artery: Unremarkable. Distal Vertebral Arteries: Right dominant vertebrobasilar circulation noted. Posterior Cerebral Arteries: Unremarkable. Posterior Inferior Cerebellar Arteries: Unremarkable. NECK CTA: Common Carotid arteries: The bilateral common carotid appear widely patent from their origins to their bifurcations with no significant stenosis appreciated. No evidence to suggest common carotid artery dissection. Internal Carotid arteries: No significant stenosis is appreciated throughout the cervical internal carotid artery segments bilaterally and there is no evidence of dissection either. External Carotid arteries: Appear unremarkable bilaterally. Vertebral arteries: The bilateral vertebral arteries appear normal in caliber from their origins to their distal cervical segments. No significant stenosis or definite pattern of dissection. ANEURYSM/ VASCULAR MALFORMATIONS: None. OTHER FINDINGS: Incidental note is made of a small ovoid area of enhancement at the base of the tongue measuring 1.1 by 0.4 cm reflecting either varix or possible ectopic thyroid tissue. Finally, there are a few tiny lucencies identified at the left lobe thyroid gland as well as at the right with the largest measuring only 6 mm at the right lobe and well under that size at the left. IMPRESSION: 1. No occlusion or significant stenosis identified in CT angiography of the brain. 2. Limited atherosclerotic plaques identified the bilateral cavernous ICA segments as well as trace carotid bulb plaque bilaterally. No significant common or internal carotid artery stenosis bilaterally in the neck. 3. Small varix or possible ectopic tissue at the base of the tongue as discussed above. Other etiologies are possible. Further, there multiple lucencies under 1 cm size at the right greater than left thyroid lobe. Consider possible ultrasound of the nuclear thyroid scan with uptake occluding capture of the inferior oral cavity.
--- NOTE | 2018-09-26 14:37 | RAD ---
Date of service: 09/26/2018 PROCEDURE: CHEST RADIOGRAPH, 1 VIEW HISTORY: Code Stroke COMPARISON: 08/18/2018. FINDINGS: LUNGS: Clear. PLEURA: No pneumothorax or pleural fluid seen. CARDIOVASCULAR: Atherosclerotic calcifications identified primarily aortic arch. Cardiomegaly. No evidence of acute, significant cardiovascular disease. OSSEOUS STRUCTURES: No significant abnormalities. VISUALIZED UPPER ABDOMEN: Normal. OTHER FINDINGS: None. IMPRESSION: No active disease. No acute/significant interval changes.
[2018-09-26] MEDS ORDERED: Influenza Vaccine 60 mcg/0.5 mL SYR (4YR UP) IM ONE (14:49)
--- NOTE | 2018-09-26 20:56 | HP ---
DATE OF EXAM: 09/26/2018 HISTORY OF PRESENT ILLNESS: I was called down to the emergency room [facility] to see Mr. Ortiz who is a 78-year-old white man who presents with right arm weakness, not able to talk, some slurring of speech. Cannot finding words, right arm numbness, cannot form a sentence, he came on suddenly. I have see him in the emergency room, starting to improve a little bit. He has a past medical history that includes Parkinson's, bipolar disorder, schizophrenia, CHF, TIA, gastroesophageal reflux disease, anxiety, depression, morbidly obese. He is currently symptomatic in the emergency room with dysarthria and numbness. He does starting to improve a little bit. I am hoping, it is just a TIA, not a stroke that came on suddenly at the left upper extremity and speech issues. He does have a medical history and he does not have ischemic stroke in the past. He does have a congestive heart failure, hypertension. He has Parkinson's disease. He has had TIAs in the past x2. He had bilateral cataract surgeries. He has had allergic rhinitis. He had benign tumor removal of the knee, reflex, obesity, gastritis, incontinence of urine, anxiety, depression. He is bipolar, panic disorder. He has had appendectomy, ORIF of the left hip. ALLERGIES: NO KNOWN DRUG ALLERGIES. MEDICATIONS: Lexapro, Proscar, Lasix, Flomax, DuoNebs, Pepcid, Claritin, Tylenol, vitamin C, guaifenesin, Zestril, Imodium, milk of magnesia, Mobic, metoprolol, Klonopin. FAMILY HISTORY: Unknown family history. REVIEW OF SYSTEMS: No acute vision changes. He does have speech changes. Throat is okay. No shortness of breath or cough. No chest pain or palpitations. No abdominal pain, nausea, vomiting, constipation, diarrhea, incontinence of urine. No back pain, neck pain. No rashes appreciated. No focal weakness. The right arm is weak and numb, and speech changes. No headache. PHYSICAL EXAMINATION: GENERAL: He is alert, looking at me right now, may be little delay in speech, but tells me it is a little bit better. VITAL SIGNS: He has a temperature 97.9, pulse 67, blood pressure 112/49, respiratory rate 22, and 94% O2 sat on room air. HEENT: Head is atraumatic, normocephalic. He can stick out his tongue midline. Throat is moist. Extraocular muscles intact. Pupils are equal and react to light. NECK: Text. HEART: Regular rate. Normal S1, S2. LUNGS: Decreased breath sounds. Poor inspiration, but clear to auscultation bilaterally. ABDOMEN: Soft, nontender. Positive sounds. Morbidly obese, nontender. EXTREMITIES: Have +2 to 4 pitting edema. NEUROLOGIC: GCS is 15. Cranial nerves II through XII are grossly intact. Speeches talk is okay. There is some word-finding issues, some rigidity in the arms from his Parkinson's. SKIN: Warm and dry. No apparent rashes I could see. It is very large, however, I cannot get to his back. Alert and oriented x3. LYMPH: Thyroid midline. No palpable appreciable lymphadenopathy LABORATORY DATA: He has blood test. He has white count 8.7, hemoglobin 42.4, hematocrit 43 with a platelets 154. INR is 1.28. Sodium 139, potassium 3.8, BUN 18, creatinine 0.8, GFR is greater than 60, sugar is 16, calcium 8.8, total bili is 0.5, AST is 22, ALT is 24, alk phos 103. Troponin I is 0.01, total protein 6.8, albumin is 3.1, globulin 3.4, triglycerides 82, cholesterol 109. He has a CAT scan of the head that shows no intracranial mass, hemorrhage, evidence of acute stroke at this time. PLAN: I have consults with Neurology. We will check his lab tomorrow, hopefully he will improve TIA. He will be an observation level of care. Fernando Stanley DO MTDD
[2018-09-26] MEDS ORDERED: MAGNESIUM 250 MG PO SCH ×2 (22:00)
[2018-09-27] MEDS: Sodium Chloride 0.9% 1,000 ML IV SCH ×2 (04:44→11:11)
[2018-09-27 05:53] VITALS: O2SAT 95
[2018-09-27 06:54] LABS: HEMOGLOBIN 14.5 g/dL (14.0-18.0); MEAN CELL VOLUME 91.7 fl (80.0-105.0); MEAN CORPUSCULAR HEMOGLOBIN 30.7 pg (25.0-35.0); MEAN CORPUSCULAR HGB CONC 33.5 g/dl (31.0-37.0); MEAN PLATELET VOLUME 10.6 fl (7.0-11.0); RBC 4.72 10^6/uL (3.5-6.1); RED CELL DISTRIBUTION WIDTH 14.4 % (11.5-14.5); WHITE BLOOD COUNT 10.6 10^3/uL (4.5-11.0)
[2018-09-27 07:01] LABS: ALBUMIN 3.4 g/dL (3.0-4.8); ALT/SGPT 20 U/L (7-56); AST/SGOT 21 U/L (17-59); BLOOD UREA NITROGEN 13 mg/dL (7-21); CALCIUM 8.6 mg/dL (8.4-10.5); GFR NON-AFRICAN AMERICAN > 60
[2018-09-27] MEDS ORDERED: Pantoprazole 20 mg EC Tab PO SCH (07:30)
[2018-09-27] MEDS: METOPROLOL SUCCINATE 50 MG PO SCH ×2 (09:33→10:31)
--- NOTE | 2018-09-27 10:14 | CP.PCM.PN ---
Subjective - Date & Time of Evaluation Date of Evaluation: 09/27/18 Time of Evaluation: 10:18 - Subjective Subjective: Neurology progress note Patient seen and examined at bedside. No acute distress. Patient denies headache, dizziness, chest pain, sob. Objective - Vital Signs/Intake and Output Vital Signs (last 24 hours): Temp Pulse Resp BP Pulse Ox 98.1 F 56 L 20 160/81 H 95 09/27/18 05:46 09/27/18 05:53 09/27/18 05:46 09/27/18 05:46 09/27/18 05:46 Intake and Output: 09/27/18 09/27/18 06:59 18:59 Intake Total 1960 Output Total 600 Balance 1360 - Medications Medications: Current Medications Albuterol/Ipratropium (Duoneb 3 Mg/0.5 Mg (3 Ml) Ud) 3 ml INH Q6 PRN PRN Reason: Shortness of Breath Aspirin (Aspirin Chewable) 81 mg PO DAILY [facility] Last Admin: 09/27/18 09:32 Dose: 81 mg Carbidopa/Levodopa (Sinemet) 1 tab PO BID [facility] Last Admin: 09/27/18 09:33 Dose: 1 tab Clonazepam (Klonopin) 1 mg PO BID [facility]; Protocol Last Admin: 09/27/18 09:32 Dose: 1 mg Escitalopram Oxalate (Lexapro) 20 mg PO DAILY [facility] Last Admin: 09/27/18 09:32 Dose: 20 mg Famotidine (Pepcid) 20 mg PO BID [facility] Last Admin: 09/27/18 09:33 Dose: 20 mg Finasteride (Proscar) 5 mg PO DAILY [facility] Last Admin: 09/27/18 09:33 Dose: 5 mg Sodium Chloride (Sodium Chloride 0.9%) 1,000 mls @ 100 mls/hr IV .Q10H [facility] Last Admin: 09/27/18 04:44 Dose: Not Given Lisinopril (Zestril) 20 mg PO DAILY [facility] Last Admin: 09/27/18 09:33 Dose: 20 mg Memantine (Namenda) 10 mg PO DAILY [facility] Last Admin: 09/27/18 09:33 Dose: 10 mg Metoprolol Tartrate (Lopressor) 50 mg PO BID [facility] Last Admin: 09/27/18 09:32 Dose: 50 mg Non-Formulary Medication (Magnesium [Magnesium]) 250 mg PO HS [facility] Last Admin: 09/26/18 21:19 Dose: Not Given Non-Formulary Medication (Metoprolol Succinate [Kapspargo Sprinkle]) 50 mg PO DAILY [facility] Last Admin: 09/27/18 09:33 Dose: Not Given Pantoprazole Sodium (Protonix Ec Tab) 20 mg PO ACB [facility] Last Admin: 09/27/18 08:21 Dose: 20 mg Tamsulosin HCl (Flomax) 0.4 mg PO DAILY [facility] Last Admin: 09/27/18 09:32 Dose: 0.4 mg Ziprasidone (Geodon Cap) 40 mg PO DAILY [facility] Last Admin: 09/27/18 09:32 Dose: 40 mg Zolpidem Tartrate (Ambien) 5 mg PO HS PRN; Protocol PRN Reason: Insomnia Last Admin: 09/26/18 21:20 Dose: 5 mg - Labs Labs: 09/27/18 06:00 09/27/18 06:00 PT 14.5 SECONDS (9.4-12.5) H 09/26/18 06:27 INR 1.28 09/26/18 06:27 APTT 35.6 Seconds (26.9-38.3) 09/26/18 06:27 - Additional Findings Additional findings: - Constitutional Appears: No Acute Distress - Head Exam Head Exam: ATRAUMATIC, NORMAL INSPECTION, NORMOCEPHALIC - Eye Exam Eye Exam: EOMI Pupil Exam: NORMAL ACCOMODATION, PERRL - Respiratory Exam Respiratory Exam: NORMAL BREATHING PATTERN. absent: Respiratory Distress - Cardiovascular Exam Cardiovascular Exam: REGULAR RHYTHM - Neurological Exam Neurological exam: Alert, Oriented x3 Additional comments: decreased sensation of Right , hypophonia, bradykinesia, cogwheel rigidity, no focal deficient - Expanded Neurological Exam Expanded Patient oriented to: person, place, time Cranial nerves: EOM's Intact: Normal, Facial Palsey w/Forehead Movement: Normal, Facial Palsey w/o Forehead Movement: Normal, Facial Sensation: Normal, Gag Reflex: Normal, Nystagmus: Normal, Tongue Deviation: Normal Cerebellar Function: Finger to Nose: Normal Upper motor neuron: Pronator Drift: Normal Neuro motor strength exam: Left Upper Extremity: 5, Right Upper Extremity: 4 (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 ), Left Lower Extremity: 3, Right Lower Extremity: 3 Coma Scale Eye Opening: SPONTANEOUS Coma Scale Motor Response: OBEYS COMMANDS Coma Scale Verbal: Oriented Coma Scale Total: 15 - Psychiatric Exam Psychiatric exam: Normal Affect, Normal Mood - Skin Skin Exam: Dry, Intact, Normal Color, Warm Assessment and Plan - Assessment and Plan (Free Text) Assessment: 78 year old male with past medical history of Parkinson's disease, bipolar disorder, schizophrenia, CHF, CVA, GERD, anxiety, and depression, who presented to the Emergency department transferred from intermediate for right arm weakness and numbness, possibly due to his Parkinson's. Plan - CT head showed no acute symptoms - CT head and neck showed no occlusion or stenoss, - Brain MRI- stable age related degenerative changes without acute or subacute infarction - echo on 08/19/18 showed EF of 67%, apical hypokinesis, moderate pulmonary HTN - patient has history of Parkinson's, continue sinemet 25/100 BID. - continue to manage risk factors for CVA - PT/OT recommended - further recommendation by Dr. Arnold case seen and discussed with Dr. Arnold
--- NOTE | 2018-09-27 12:25 | MRI ---
Date of service: 09/27/2018 PROCEDURE: MRI BRAIN WITHOUT CONTRAST HISTORY: r/o stroke COMPARISON: A brain MRI without contrast 08/19/2018. TECHNIQUE: Multiplanar, multisequence MR images of the brain were obtained without intravenous contrast enhancement. FINDINGS: HEMORRHAGE: None DWI: No evidence of an acute or early subacute infarction. BRAIN PARENCHYMA: Stable age related neuro degenerative changes are identified primarily involving the cerebrum including diffuse cerebral atrophy chronic microangiopathy. The inga and cerebellum are less affected. Scattered infrequent chronic lacunes are noted as well as infrequently scattered cavernomata are identified focally at the inferior cerebellar hemispheres bilaterally and inferior left temporal occipital junction once again. Other etiologies of focal hemosiderin deposition or possible though not favored such is posttraumatic etiology or even less likely amyloid angiopathy. No mass effect or suspicious extra-axial collection in the interval. Midline brain anatomy is stable. VENTRICLES: Unremarkable. No hydrocephalus. CRANIUM: Unremarkable. ORBITS: Grossly unremarkable. PARANASAL SINUSES/MASTOIDS: Retention cyst or polyp or inferior right maxillary sinus again evident. VASCULAR SYSTEM: Skull base flow voids intact. OTHER FINDINGS: None. IMPRESSION: Stable age-related degenerative change are identified without acute or subacute brain infarction at this time. Occasional inferior cerebellar chronic lacune is are reiterated as well as limited focal chronic hemosiderin deposition as discussed above.
[2018-09-27 13:05] VITALS: BP 155/73; PULSE 51; RESP 18; TEMP 98.5
--- NOTE | 2018-09-27 22:06 | DS ---
HISTORY OF PRESENT ILLNESS: The patient is resting comfortably in bed. He is eating his breakfast. He is in good spirits. He is back to his old self,he tells me. He has no complaints. I believe what he had was a TIA DISCHARGE PHYSICAL EXAMINATION: VITAL SIGNS: Temperature 98.1, pulse 57, blood pressure 160/81, respiratory rate 20, 95% O2 sat on room air. GENERAL: He is morbidly obese. HEENT: Head is atraumatic, normocephalic. HEART: Regular rate. ABDOMEN: Soft,obese. EXTREMITIES: No edema. LABORATORY DATA: He has sodium 139, potassium 3.8, BUN 30, creatinine 0.7, GFR is greater than 60, sugar 99, calcium is 8.6, total bili is 0.4. AST 21, ALT is 20, alk phos 112. Troponin I is 0.01. Total protein 6.9. White count 7.6, hemoglobin 14.5, hematocrit 42.3, platelets of 166. DISPOSITION: He will be discharged back to the place where he came from, same medications, he had a TIA. Fernando Stanley DO MTDD
== END 2018-09-27 14:18 ==
LOC: ED 05:47 → ERH 06:53 → 2RNO 14:50
PROVIDERS: ADMIT Family Medicine; ATTEND Family Medicine
DX: G45.9 Transient cerebral ischemic attack, unspecified (principal); E66.01 Morbid (severe) obesity due to excess calories; Z68.42 Body mass index [BMI] 45.0-49.9, adult; G20 Parkinson's disease; I50.9 Heart failure, unspecified; I11.0 Hypertensive heart disease with heart failure; K21.9 Gastro-esophageal reflux disease without esophagitis; F20.9 Schizophrenia, unspecified; F31.9 Bipolar disorder, unspecified; H26.9 Unspecified cataract; K29.70 Gastritis, unspecified, without bleeding; Z87.891 Personal history of nicotine dependence
CPT/HCPCS: 36415; 70450; 70496; 70498; 70551; 71045; 80053; 80061; 82948; 83036; 84484; 85025; 85027; 85610; 85730; 86850; 86900; 93005; 99285; G0378; J7030; Q9967